=== PATIENT | female | born 1945 | race African-American/Black ===

== ENCOUNTER 2024-02-15 09:42 | Outpatient (CLI) | payer MEDICARE, SELFPAY ==
--- NOTE | ~2024-02-15 | CT_ITS ---
EXAMINATION: CT brain wo con DATE: 02/15/2024 10:35 INDICATION: Dementia. TECHNIQUE: Computed tomography (CT) of the head was performed without intravenous contrast. The mA wa s adjusted according to patient size. Iterative reconstruction technique was employed. The dose-lengt h product was 529.67 mGy-cm. COMPARISON: None FINDINGS: There are scattered areas of low attenuation in the cerebral white matter, which is within normal limits for the patient's age. There is no intracranial hemorrhage, acute infarction, or abnorm al intracranial mass lesion. The ventricles are normal in size. The paranasal sinuses are clear. Ther e is a trace left mastoid effusion. IMPRESSION: 1. Normal aging brain. Reviewed, dictated and finalized at location A. IMPRESSION: 1. Normal aging brain.
[2024-02-15 10:15] LABS: Basophils Percent Auto 0.4 % (0.2-1.2); Eosinophils Absolute Auto 0.1 K/mm3 (0-0.3); Eosinophils Percent Auto 1.6 % (0-4.4); Hematocrit 35.4 % (37.0-47.0); Immature Granulocyte Absolute 0.02 K/mm3 (0.00-0.031); Immature Granulocyte Percent A 0.3 % (0-0.5); Lymphocytes Absolute Auto 1.11 K/mm3 (0.9-3.2); Lymphocytes Percent Auto 15.2 % (18.3-44.2); Mean Corpuscular HGB Conc 33.9 g/dl (32-36); Mean Corpuscular Hemoglobin 28.1 pg (26-34); Mean Corpuscular Volume 82.9 fl (80-100); Mean Platelet Volume 10.4 fl (7.4-10.4); Monocytes Absolute Auto 0.3 K/mm3 (0.1-0.6); Monocytes Percent Auto 4.5 % (2.6-8.5); Neutrophils Absolute Auto 5.7 K/mm3 (1.3-6.7); Platelet Count Result 256 k/mm3 (150-375); Red Blood Count 4.27 M/mm3 (4.2-5.4); White Blood Count 7.3 K/mm3 (4.5-10.0)
[2024-02-15 10:26] LABS: Alanine Aminotransferase 29 U/L (6-35); Albumin Level 4.2 g/dL (3.5-5.1); Alkaline Phosphatase 79 U/L (38-126); Anion Gap 6 mmol/L (4-12); Aspartate Amino Transferase 42 U/L (14-36); Bilirubin,Total 0.6 mg/dL (0.2-1.3); Blood Urea Nitrogen 18 mg/dL (7-17); Calcium 10.1 mg/dL (8.4-10.2); Carbon Dioxide 26 mmol/L (22-30); Chloride 108 mmol/L (98-107); Cholesterol 237 mg/dL (0-200); Estimated Glomerular Filt Rate > 60; Glucose 96 mg/dL (65-110); HDL Direct 78 mg/dL; Potassium 4.1 mmol/L (3.4-5.0); Sodium 140 mmol/L (137-145); Triglycerides 72 mg/dL (<150)
[2024-02-15 10:36] LABS: LDL Cholesterol Direct 102 mg/dL
[2024-02-15 11:07] LABS: Add Urine Microscopic? YES; Appearance Urine Clear (Clear); Bacteria Urine None Seen /hpf; Bilirubin Urine Negative (Negative); Blood Urine Negative (Negative); Color Urine Yellow (Yellow); Glucose Urine UA Negative (Negative); Ketones Urine Negative (Negative); Leukocyte Esterase Ur Trace LEU/UL (Negative); Nitrate Urine Negative (Negative); Non Pathogenic Casts 0-2; Protein Urine Trace mg/dL (Negative); RBC Urine 0-2 /hpf (0-2); Squamous Epithelial Cell Urine None Seen /hpf (Few); Urobilinogen Urine 0.2 mg/dL (<2.0); WBC Urine 0-5 /hpf (0-3); pH Urine 6.5 (5.0-9.0)
[2024-02-15 11:08] LABS: Free T4 Free Thyroxine 0.97 ng/mL (0.78-2.19)
[2024-02-15 14:21] LABS: Rapid Plasma Reagin Non-Reactive (NonReactive)
== END 2024-02-15 09:43 | disposition home or self-care (01) ==
PROVIDERS: PCP Internal Medicine; Visit Provider Internal Medicine
DX: F03.90 Unspecified dementia, unspecified severity, without behavioral disturbance, psychotic disturbance, mood disturbance, and anxiety (principal); N39.0 Urinary tract infection, site not specified; I10 Essential (primary) hypertension; E78.00 Pure hypercholesterolemia, unspecified
CPT/HCPCS: 36415; 70450; 80053; 80061; 81001; 82607; 84439; 84443; 85025; 86592

== ENCOUNTER 2024-11-14 08:43 | Outpatient (CLI) | payer MEDICARE, SELFPAY ==
--- OUTSIDE RECORDS SUMMARY | 2024-11-14 08:51 | XMS_ITS | Clinical Summary ---
Author Organization [facility] Address [address] [place] [address] Care Team Providers Care Sample Stitcher Name Role Phone Matthew Lopez MD Primary Care Provider [phone] Source Comments [facility],non-owned Affiliates and Associated Physician Practices is amultiple site organization consisting of ambulatory clinics and hospital sitesin [place], [place], [place] and [place]. This disclosure is being madepursuant to the Care Everywhere program and may not contain all information available regarding this patient. 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 Gender Identity Not on file Sexual Orientation Not on file Plan of Treatment Health Maintenance Due Date Last Done Comments BONE DENSITY TESTING 1945 HEPATITIS C SCREENING 09/07/1964 DTAP/TDAP/TD VACCINES (1 - Tdap) 1965 PNEUMOCOCCAL VACCINE 50+ (1 of 1 - PCV) 1996 ZOSTER VACCINE (1 of 2) 1996 Respiratory Syncytial Virus (RSV) Vaccine Pt: or over 60 yrs (1 - 1-dose 75+ series) 2021 COVID-19 VACCINE ( - 2023-2 5 season) 2023 DEPRESSION SCREENING 04/24/2024 MEDICARE AWV CALENDAR YEAR 2024 INFLUENZA VACCINE (#1) 2024 HEPATITIS B VACCINE Aged Out No longe r eligible based on patient's age to complete this topic HIB VACCINE Aged Out No longer eligi ble based on patient's age to complete this topic HPV VACCINE Aged Out No longer eligi ble based on patient's age to complete this topic MENINGOCOCCAL (Group B) VACC INE SHARED DECISION-MAKING Aged Out No longer eligibl e based on patient's age to complete this topic MENINGOCOCCAL GROUPS A/C/Y/W VACCINE Aged Out No longer eligible b ased on patient's age to complete this topic Insurance [facility] MANAGED MEDICARE ADV Care Teams Sample Stitcher Relationship Specialty Start Date End Date Matthew Lopez MD [address] [place] [address] [address] [place] [address] PCP - General 07/29/22
--- OUTSIDE RECORDS SUMMARY | 2024-11-14 08:52 | XMS_ITS | Clinical Summary ---
Author Organization [facility] Address [address] [place] [id number] Care Team Providers Care Data Analytics Architect Name Role Phone Matthew Lopez MD Primary Care Provider [phone] Allergies No known active allergies Medications atorvastatin (LIPITOR) 20 MG tablet Take 1 tablet (20 mg total) by mouth daily. 05/23/2022 Active hydroCHLOROthiaz domingo (MICROZIDE) 12.5 MG tablet Take 1 tablet (12.5 mg total) by mouth daily. 05/16/2022 Active metoprolol succinate ER (TOPROL-XL) 50 MG 24 hr tablet Take 1 tablet (50 mg total) by mouth daily. 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 Gender Identity Not on file Sexual Orientation Not on file Last Filed Vital Signs Vital Sign Reading Time Taken Comments Blood Pressure 168/99 11/02/2022 3:24 PM CDT Pulse 90 11/02/2022 2:31 PM CDT Temperature 36.8 C (98.3 F) 11/02/2022 2:31 PM CDT Respiratory Rate - - Oxygen Saturation 100% 11/02/2022 2:31 PM CDT Inhaled Oxygen Concentration - - Weight 67.9 kg (149 lb 9.6 oz) 11/02/2022 2:31 P M CDT Height 142.2 cm (4' 8) 11/02/2022 2:31 PM CDT Body Mass Index 33.54 11/02/2022 2:31 PM CDT Plan of Treatment Health Maintenance Due Date Last Done Comments Hepatitis C 1963 DTaP, Tdap and Td Vaccines ( 1 - Tdap) 1965 Pneumococcal Vaccine: 50+ Years (1 of 1 - PCV) 1996 Zoster Vaccines (1 of 2) 1996 Annual Medicare Wellness Visit 09/13/2011 Dexa Scan (General) 09/13/2011 RSV Immunization or 60+ Years (1 - 1-dose 75+ series) 2021 COVID-19 Vaccine (3 - 2023-2 5 season) 2023 02/20/2021, 06/29/2020 PHQ-2 (Physician [place]) 04/24/2024 Meningococcal B Vaccine Aged Out No l onger eligible based on patient's age to complete this topic Meningococcal Vaccine Aged Out No caitie tray eligible based on patient's age to complete this topic RSV Immunizations Under 20 Months Aged Out No longer eligible b ased on patient's age [place] [address] Care Teams Data Analytics Architect Relationship Specialty Start Date End Date Matthew Lopez MD [address] [id number] PCP - General INTERNAL MEDICINE 03/04/22
--- OUTSIDE RECORDS SUMMARY | 2024-11-14 08:52 | XMS_ITS | Data Portability ---
Author Organization [place] - [facility] [employer], Main Office Address [address] [place] [address] Care Team Providers Care Field Nurse Name Role Phone JO LOPEZ Primary Care Provider [phone] Assessment No assessment recorded. Plan of Treatment Reminders Order Date Submit Date Provider Last Modified By Organization Details Last Modified Time Details Appointments None recorded. Lab CBC w/ auto diff 025 [facility] Outpatient Lab, [address] [place], [address], 5 04:19:12 CBC w/ auto diff 025 [facility] Lab, [address] [place], [address], 5 04:19:12 CMP, serum or plasma 025 [facility] Lab, [address] [place], [address], 5 04:19:12 lipid panel, serum 025 [facility] Out[facility] Lab, [address] [place], [address], 5 04:19:12 TSH, serum or plasma 025 025 [facility] Outpatient Lab, [address] [place], [address], 5 04:19:13 vitamin B12, serum [id number] [place] [address] Outpatient Lab, [address] [place], [address], 4 10:26:57 RPR (rapid plasma reagin), serum [email or web address] [facility] Outpatient Lab, [address] [place] [address], [address], 4 10:26:58 lipid panel, serum [facility] Lab, [address] [place] [address], [address], 4 12:30:21 CMP, serum or plasma [facility], [address] [place] [address], [address], 4 12:26:21 T4, free, serum [email or web address] [facility] Lab, [address] [place] [address], [address], 4 10:26:57 TSH, serum or plasma [id number] [place] [address] Lab, [address] [place] [address], [address], 4 10:26:57 CBC w/ auto diff [facility] Lab, [address] [place] [address], [address], 4 12:28:01 Referral None recorded. Procedures None recorded. Surgeries None recorded. Imaging None recorded. Medication Orders None recorded. Patient TargetsNo targets recorded. Patient Instructions Encounter Date Encounter Id Patient Instructions Last Modified By Organization Details Last Modified Time 02/08/2024 [id number] dementia rating scale-2* [email or web address] Not available 02/08/2024 15:32:10 alcohol misuse* [email or web address] Not available 02/08/2024 15:32:11 depression screening* Not available 02/08/2024 15:32:10 multi-dimensiona l health assessment questionnaire* [email or web address] Not available 02/08/2024 15:32:11 Personalized a [facility] Plan and Screening Recommendations Advance Directives - Do you have one? Yes Advance Directives - Do we have your advance directive on file in your health record? No, please bring in a copy at your earliest convenience Primary Prevention/Intervent ion (prevents or decreases the chance of common diseases from occurring) Smoking Risk: Non Smoker Alcohol Misuse Screening: Negative Weight: Appropriate Physical activity: Need more exercise/physical activity Nutrition: Average Fall Risk (screened today): Low Vaccines Pneumococcal: Influenza: Your next one in the fall of this year Chronic Disease Risks Stroke: Intermediate Risk Active diagnosis, Continue current treatment plan Heart Attack: Intermediate Risk Active diagnosis, Continue current treatment plan Clogging of the Arteries: Intermediate Risk Active diagnosis, Continue current treatment plan Diabetes: Low Risk I have no recommendations Secondary Prevention/Intervent ion (detects treatable diseases before they may cause symptoms, disability, or ) Breast Cancer Screening with mammogram: Recommended today Cervical/Uterine/Ova andressa Cancer Screening: No screening necessary Osteoporosis Screening: Recommended today Date Screening Last Performed: Colon Cancer Screening: Colonoscopy Recommended today, but you have declined Date Screening Last Performed: _2012____ Eye Disease Screening: Your next exam in: goes every 2 yrs Dementia Risk: Low I have no recommendations Depression Screening: Negative I have no recommendations [email or web address] Not available 02/08/2024 15:18:33 Medicare wellnes s evaluation risk assessment stable. Follow-up for hypertension, hyperlipidemia and cognitive dysfunction. Will check blood work consisting of CBC, CMP, lipid, thyroid, B12, RPR. Needs a CT scan of the brain and try to set up for neuropsychiatric evaluation. Additional Orders - Directives - Recommendations 1. CT scan of the brain without contrast. 2. Set up for neurology evaluation up in [facility] Portions of the record may have been created with voice recognition software. Occasional wrong-word or qluea-i-ychm substitutions may have occurred due to the inherent limitations of voice recognition software. Read the chart carefully and recognize, using context, where substitutions have occurred. [email or web address] Not available 02/08/2024 15:31:52 11/07/2024 [id number] Acute lower back strain, hypertension, hyperlipidemia, anxiety disorder. Will continue on current Rx will check blood work consisting of CBC, CMP, lipid, thyroid and vitamin-D level. Does need a mammogram, bone density scan and Cologuard test. Will give a trial of a Medrol Dosepak. Additional Orders - Directives - Recommendations 1. Mammogram screening 2. bone density scan 3. Cologuard Follow Up: 4 Months Approximate Date: 03/07/2025 Portions of record are template driven. When necessary additional context will be provided. Additionally some portions have been created with voice recognition software. Occasional wrong-word or qscgy-s-wbic substitutions may have occurred due to the inherent limitations of voice recognition software. Read the chart carefully and recognize, using context, where substitutions may have occurred. Created: Jo Lopez M.D. 11.07.2024 03:15 PM [email or web address] Not available 11/07/2024 16:15:13 Reason for Referral None Reported. Results Created Date Observation Date Name Description Value Unit Range Abnormal Flag Note LastModifiedBy Organization Detail LastModifiedTime 10/13/19 21 10/12/2020 TSH, serum or plasm a thyroid-stim ulating hormone 0.539 uIU/m L 0.465- 4.680 Not Available [facility] (Lab) [address] [place], [address], 10/12/2020 15:45:19 10/13/19 21 10/12/2020 T4, free, serum free T4 0.90 NG/dL 0.78-2 .19 Not Available [facility] (Lab) [address] [place], [address], 10/12/2020 15:28:09 10/13/19 21 10/12/2020 vitam in D3, 25-hy droxy , serum [id number] 48.9 NG/mL 30-100 Vitam in D Statu s: Defic ient: <20 ng/mL Insuf ficie nt: 20-29 ng/mL Suffi cient : 30-10 0 ng/mL Not Available [facility] (Lab) [address] [place], [address], 10/12/2020 15:26:54 10/13/19 21 10/12/2020 CBC w/ auto diff white blood cells 7.7 x10'3 /uL 4.2-10 .8 Not Available [facility] (Lab) [address] [place], [address], 10/12/2020 14:43:15 10/13/19 21 10/12/2020 CBC w/ auto diff red blood cells 4.45 x10'6 /uL 3.80-5 .20 Not Available [facility] (Lab) [address] [place], [address], 10/12/2020 14:43:15 10/13/19 21 10/12/2020 CBC w/ auto diff hemoglobin 12.4 g/dL 12.0-1 5.6 Not Available [facility] (Lab) [address] [place], [address], 10/12/2020 14:43:15 10/13/19 21 10/12/2020 CBC w/ auto diff hematocrit 37.9 % 35.7-4 5.7 Not Available [facility] (Lab) [address] [place], [address], 10/12/2020 14:43:15 10/13/19 21 10/12/2020 CBC w/ auto diff mean red cell volume 85.2 fL 82.0-9 9.0 Not Available [facility] (Lab) [address] [place], [address], 10/12/2020 14:43:15 10/13/19 21 10/12/2020 CBC w/ auto diff mean red cell hemoglobin 27.9 pg 27.0-3 3.0 Not Available [facility] (Lab) [address] [place], [address], 10/12/2020 14:43:15 10/13/19 21 10/12/2020 CBC w/ auto diff mean RBC HGB concentratio n 32.7 g/dL 31.0-3 6.0 Not Available [facility] (Lab) [address] [place], [address], 10/12/2020 14:43:15 10/13/19 21 10/12/2020 CBC w/ auto diff red cell distribution width 14.9 % 11.8-1 5.5 Not Available [facility] (Lab) [address] [place], [address], 10/12/2020 14:43:15 10/13/19 21 10/12/2020 CBC w/ auto diff platelets 294 x10'3 /uL 150-40 0 Not Available [facility] (Lab) [address] [place], [address], 10/12/2020 14:43:15 10/13/19 21 10/12/2020 CBC w/ auto diff mean platelet volume 11.6 fL 9.0-12 .4 Not Available [facility] (Lab) [address] [place], [address], 10/12/2020 14:43:15 10/13/19 21 10/12/2020 CBC w/ auto diff neutrophils 74.7 % 39.0-7 2.0 high Not Available [facility] (Lab) [address] [place], [address], 10/12/2020 14:43:15 10/13/19 21 10/12/2020 CBC w/ auto diff lymphocytes 17.2 % 16.0-4 7.0 Not Available [facility] (Lab) [address] [place], [address], 10/12/2020 14:43:15 10/13/19 21 10/12/2020 CBC w/ auto diff monocytes 5.5 % 5.0-12 .0 Not Available [facility] (Lab) [address] [place], [address], 10/12/2020 14:43:15 10/13/19 21 10/12/2020 CBC w/ auto diff eosinophils 1.3 % 1.0-7. 0 Not Available [facility] (Lab) [address] [place], [address], 10/12/2020 14:43:15 10/13/19 21 10/12/2020 CBC w/ auto diff basophils 0.3 % 0.0-2. 0 Not Available [facility] (Lab) [address] [place], [address], 10/12/2020 14:43:15 10/13/19 21 10/12/2020 CBC w/ auto diff immature granulocytes 1.0 % 0.00-0 .50 high Not Available [facility] (Lab) [address] [place], [address], 10/12/2020 14:43:15 10/13/19 21 10/12/2020 CBC w/ auto diff neutrophils, absolute count 5.72 x10'3 /uL 1.5-8. 0 Not Available [facility] (Lab) [address] [place], [address], 10/12/2020 14:43:15 10/13/19 21 10/12/2020 CBC w/ auto diff lymphocytes, absolute count 1.32 x10'3 /uL 1.07-3 .43 Not Available [facility] (Lab) [address] [place], [address], 10/12/2020 14:43:15 10/13/19 21 10/12/2020 CBC w/ auto diff monocytes, absolute count 0.42 x10'3 /uL 0.29-0 .99 Not Available [facility] (Lab) [address] [place], [address], 10/12/2020 14:43:15 10/13/19 21 10/12/2020 CBC w/ auto diff eosinophils, absolute count 0.10 x10'3 /uL 0.02-0 .53 Not Available [facility] (Lab) [address] [place], [address], 10/12/2020 14:43:15 10/13/19 21 10/12/2020 CBC w/ auto diff basophils, absolute count 0.02 x10'3 /uL 0.01-0 .08 Not Available [facility] (Lab) [address] [place], [address], 10/12/2020 14:43:15 10/13/19 21 10/12/2020 CBC w/ auto diff immature granulocytes ,absolute 0.08 x10'3 /uL 0.00-0 .05 high Not Available [facility] (Lab) [address] [place], [address], 10/12/2020 14:43:15 10/13/19 21 10/12/2020 CBC w/ auto diff nucleated red blood cells 0.0 % -0 Not Available [facility] (Lab) [address] [place], [address], 10/12/2020 14:43:15 10/13/19 21 10/12/2020 CBC w/ auto diff NRBC# 0.00 x10'3 /uL Not Available [facility] (Lab) [address] [place], [address], 10/12/2020 14:43:15 10/13/19 21 10/12/2020 lipid panel , serum LDL cholesterol, calculated 65 mg/dL 0-130 NIH JT NSUS REPOR T RECOM MENDA TIONS FOR LDL: ADULT CHILD LOW RISK <130 <110 (OPTI MAL LDL) <100 ----- BORDE RLINE : 130-1 59 ----- HIGH RISK: >160 >130 A TRIGL YCERI DE RESUL T >400 INVAL IDATE S THE CALCU LATIO N FOR LDL FRACT IONAT ION - THE LDL RESUL T WILL NOT BE REPOR IRIS. Not Available [facility] (Lab) [address] [place], [address], 10/12/2020 13:53:24 10/13/19 21 10/12/2020 lipid panel , serum cholesterol 162 mg/dL 140-19 9 NIH JT NSUS RECOM MENDA TION FOR KAROL STERO L: ADULT CHILD LOW RISK: <200 <170 BORDE RLINE : <200- 239 ----- HIGH RISK: >240 >200 Not Available [facility] (Lab) [address] [place], [address], 10/12/2020 13:53:24 10/13/19 21 10/12/2020 lipid panel , serum triglyceride s 89 mg/dL 0-150 NIH JT NSUS REPOR T RECOM MENDA TION FOR TRIGL YCERI MECCA: ADULT CHILD LOW RISK: <150 ----- BODER LINE: 150-1 99 ----- HIGH RISK: >200 ----- Not Available [facility] (Lab) [address] [place], [address], 10/12/2020 13:53:24 10/13/19 21 10/12/2020 lipid panel , serum HDL cholesterol 79 mg/dL 40- Not Available [facility] (Lab) [address] [place], [address], 10/12/2020 13:53:24 10/13/19 21 10/12/2020 CMP, serum or plasm a carbon dioxide 26 mmol/ L 22-30 Not Available [facility] (Lab) [address] [place], [address], 10/12/2020 13:53:22 10/13/19 21 10/12/2020 CMP, serum or plasm a sodium 141 mmol/ L 137-14 5 Not Available [facility] (Lab) [address] [place], [address], 10/12/2020 13:53:22 10/13/19 21 10/12/2020 CMP, serum or plasm a potassium 4.0 mmol/ L 3.5-5. 1 Not Available [facility] (Lab) [address] [place], [address], 10/12/2020 13:53:22 10/13/19 21 10/12/2020 CMP, serum or plasm a chloride 109 mmol/ L 98-107 high Not Available [facility] (Lab) [address] [place], [address], 10/12/2020 13:53:22 10/13/19 21 10/12/2020 CMP, serum or plasm a creatinine 0.81 mg/dL 0.66-1 .25 Not Available [facility] (Lab) [address] [place], [address], 10/12/2020 13:53:22 10/13/19 21 10/12/2020 CMP, serum or plasm a agap 10.0 mmol/ L 14-22 low Not Available [facility] (Lab) [address] [place], [address], 10/12/2020 13:53:22 10/13/19 21 10/12/2020 CMP, serum or plasm a glucose 107 mg/dL 70-99 high Not Available [facility] (Lab) [address] [place], [address], 10/12/2020 13:53:22 10/13/19 21 10/12/2020 CMP, serum or plasm a BUN 26 mg/dL 8-19 high Not Available [facility] (Lab) [address] [place], [address], 10/12/2020 13:53:22 10/13/19 21 10/12/2020 CMP, serum or plasm a GFR >60 Refer ence Range : [place] ge GFR Healt hy Adult : >60 mL/mi n/1.7 3 m2 Chron ic Kidne y Disea se: 15-60 mL/mi n/1.7 3 m2 Kidne y Failu re: <15/m L/min /1.73 m2 www.n iddk. nih.g ov MDRD study equat ion hasn' t been valid ated in child love <18 yrs of age, pregn ant women , the elder ly >85 yrs of age, or in some racia l or ethni c subgr oups, suc as Hispa nics. Outsi de the valid ated jolanta eters , estim ated GFR is less accur ate requi ring clini ben judgm ent on a case by case basis . Clini ben inter preta tion for other races and ages must be made by the clini reynaldo . Futhe rmore , any of th e limit ation s with the use of serum creat inine relat ed to nutri lencho l statu s o r medic ation usage hasn' t accou nted for the MDRD Study equat ion. For perso ns < 18 yrs of age, a pedia tric GFR calcu lator can be locat ed on the [facility] websi te: https ://moises lui.grace arana.o rg/pr ofess ional s/kdo qi/gf r_cal culat or Not Available [facility] (Lab) [address] [place], [address], 10/12/2020 13:53:22 10/13/19 21 10/12/2020 CMP, serum or plasm a alkaline phosphatase 72 U/L 38-126 Not Available [facility] (Lab) [address] [place], [address], 10/12/2020 13:53:22 10/13/1910/12/2020 CMP, serum or plasm a alanine aminotransfe rase 26 U/L 0-35 Not Available [facility] (Lab) [address] [place], [address], 10/12/2020 13:53:22 10/13/19 21 10/12/2020 CMP, serum or plasm a aspartate aminotransfe rase 36 U/L 15-37 Not Available [facility] (Lab) [address] [place], [address], 10/12/2020 13:53:22 10/13/19 21 10/12/2020 CMP, serum or plasm a bilirubin, total 0.60 mg/dL 0.20-1 .30 Not Available [facility] (Lab) [address] [place], [address], 10/12/2020 13:53:22 10/13/19 21 10/12/2020 CMP, serum or plasm a calcium 10.5 mg/dL 8.4-10 .2 high Not Available [facility] (Lab) [address] [place], [address], 10/12/2020 13:53:22 10/13/19 21 10/12/2020 CMP, serum or plasm a total protein 7.1 g/dL 6.3-8. 2 Not Available [facility] (Lab) [address] [place], [address], 10/12/2020 13:53:22 10/13/19 21 10/12/2020 CMP, serum or plasm a albumin 4.3 g/dL 3.0-4. 4 Not Available [facility] (Lab) [address] [place], [address], 10/12/2020 13:53:22 10/13/19 21 10/12/2020 CMP, serum or plasm a globulin 2.8 g/dL 2.6-4. 2 Not Available [facility] (Lab) [address] [place], [address], 10/12/2020 13:53:22 10/13/19 21 10/12/2020 CMP, serum or plasm a A/G ratio 1.5 ratio 1.0-2. 0 Not Available [facility] (Lab) [address] [place], [address], 10/12/2020 13:53:22 08/03/19 22 08/02/2021 TSH thyroid-stim ulating hormone 1.040 uIU/m L 0.465- 4.680 Not Available [facility] (Lab) [address] [place], [address], 08/02/2021 14:23:01 08/03/19 22 08/02/2021 T4 FREE free T4 0.93 NG/dL 0.78-2 .19 Not Available [facility] (Lab) [address] [place], [address], 08/02/2021 14:12:12 08/03/19 22 08/02/2021 VITAM IN D 25-HY DROXY [id number] 47.8 NG/mL 30-100 Vitam in D Statu s: Defic ient: <20 ng/mL Insuf ficie nt: 20-29 ng/mL Suffi cient : 30-10 0 ng/mL Not Available [facility] (Lab) [address] [place], [address], 08/02/2021 14:12:09 08/03/19 22 08/02/2021 LIPID PANEL LDL cholesterol, calculated 77 mg/dL 0-130 NIH JT NSUS REPOR T RECOM MENDA TIONS FOR LDL: ADULT CHILD LOW RISK <130 <110 (OPTI MAL LDL) <100 ----- BORDE RLINE : 130-1 59 ----- HIGH RISK: >160 >130 A TRIGL YCERI DE RESUL T >400 INVAL IDATE S THE CALCU LATIO N FOR LDL FRACT IONAT ION - THE LDL RESUL T WILL NOT BE REPOR IRIS. Not Available [facility] (Lab) [address] [place], [address], 08/02/2021 13:54:03 08/03/19 22 08/02/2021 LIPID PANEL cholesterol 180 mg/dL 140-19 9 NIH JT NSUS RECOM MENDA TION FOR KAROL STERO L: ADULT CHILD LOW RISK: <200 <170 BORDE RLINE : <200- 239 ----- HIGH RISK: >240 >200 Not Available [facility] (Lab) [address] [place], [address], 08/02/2021 13:54:03 08/03/19 22 08/02/2021 LIPID PANEL triglyceride s 71 mg/dL 0-150 NIH JT NSUS REPOR T RECOM MENDA TION FOR TRIGL YCERI MECCA: ADULT CHILD LOW RISK: <150 ----- BODER LINE: 150-1 99 ----- HIGH RISK: >200 ----- Not Available [facility] (Lab) [address] [place], [address], 08/02/2021 13:54:03 08/03/19 22 08/02/2021 LIPID PANEL HDL cholesterol 89 mg/dL 40- Not Available [facility] (Lab) [address] [place], [address], 08/02/2021 13:54:03 08/03/19 22 08/02/2021 COMPR EHENS MANJIT METAB OLIC PANEL sodium 140 mmol/ L 137-14 5 Not Available [facility] (Lab) [address] [place], [address], 08/02/2021 13:53:59 08/03/19 22 08/02/2021 COMPR EHENS MANJIT METAB OLIC PANEL potassium 3.9 mmol/ L 3.5-5. 1 Not Available [facility] (Lab) [address] [place], [address], 08/02/2021 13:53:59 08/03/19 22 08/02/2021 COMPR EHENS MANJIT METAB OLIC PANEL chloride 107 mmol/ L 98-107 Not Available [facility] (Lab) [address] [place], [address], 08/02/2021 13:53:59 08/03/19 22 08/02/2021 COMPR EHENS MANJIT METAB OLIC PANEL carbon dioxide 28 mmol/ L 22-30 Not Available [facility] (Lab) [address] [place], [address], 08/02/2021 13:53:59 08/03/19 22 08/02/2021 COMPR EHENS MANJIT METAB OLIC PANEL agap 8.9 mmol/ L 14-22 low Not Available [facility] (Lab) [address] [place], [address], 08/02/2021 13:53:59 08/03/19 22 08/02/2021 COMPR EHENS MANJIT METAB OLIC PANEL glucose 101 mg/dL 70-99 high Not Available [facility] (Lab) [address] [place], [address], 08/02/2021 13:53:59 08/03/19 22 08/02/2021 COMPR EHENS MANJIT METAB OLIC PANEL BUN 23 mg/dL 8-19 high Not Available [facility] (Lab) [address] [place], [address], 08/02/2021 13:53:59 08/03/19 22 08/02/2021 COMPR EHENS MANJIT METAB OLIC PANEL creatinine 0.89 mg/dL 0.66-1 .25 Not Available [facility] (Lab) [address] [place], [address], 08/02/2021 13:53:59 08/03/19 22 08/02/2021 COMPR EHENS MANJIT METAB OLIC PANEL GFR >60 Refer ence Range : [place] ge GFR Healt hy Adult : >60 mL/mi n/1.7 3 m2 Chron ic Kidne y Disea se: 15-60 mL/mi n/1.7 3 m2 Kidne y Failu re: <15/m L/min /1.73 m2 www.n iddk. nih.g ov The MDRD study equat ion has not been valid ated in child love <18 years of age; pregn ant women ; the elder ly >85 years of age; or in some racia l or ethni c subgr oups, such as Hispa nics. Outsi de the valid ated jolanta eters , estim ated GFR is less accur ate, requi ring clini ben judgm ent on a case- by-ca se basis . Clini ben inter preta tion for other races and ages must be made by the clini reynaldo. The MDRD study equat ion has not been valid ated for the evalu ation of serum creat inine relat ed to nutri lencho l statu s or medic ation usage . For perso ns <18 years of age, a pedia tric GFR calcu lator is avail able on the [facility] websi te: https ://moises arana.blanca brand/pr carolyness ional s/kdo qi/gf r_cal culat or Not Available [facility] (Lab) [address] [place], [address], 08/02/2021 13:53:59 08/03/19 22 08/02/2021 COMPR EHENS MANJIT METAB OLIC PANEL alkaline phosphatase 79 U/L 38-126 Not Available [facility] (Lab) [address] [place], [address], 08/02/2021 13:53:59 08/03/19 22 08/02/2021 COMPR EHENS MANJIT METAB OLIC PANEL alanine aminotransfe rase 30 U/L 0-35 Not Available [facility] (Lab) [address] [place], [address], 08/02/2021 13:53:59 08/03/19 22 08/02/2021 COMPR EHENS MANJIT METAB OLIC PANEL aspartate aminotransfe rase 41 U/L 15-37 high Not Available [facility] (Lab) [address] [place], [address], 08/02/2021 13:53:59 08/03/19 22 08/02/2021 COMPR EHENS MANJIT METAB OLIC PANEL bilirubin, total 0.70 mg/dL 0.20-1 .30 Not Available [facility] (Lab) [address] [place], [address], 08/02/2021 13:53:59 08/03/19 22 08/02/2021 COMPR EHENS MANJIT METAB OLIC PANEL calcium 10.1 mg/dL 8.4-10 .2 Not Available [facility] (Lab) [address] [place], [address], 08/02/2021 13:53:59 08/03/19 22 08/02/2021 COMPR EHENS MANJIT METAB OLIC PANEL total protein 7.1 g/dL 6.3-8. 2 Not Available [facility] (Lab) [address] [place], [address], 08/02/2021 13:53:59 08/03/19 22 08/02/2021 COMPR EHENS MANJIT METAB OLIC PANEL albumin 4.1 g/dL 3.0-4. 4 Not Available [facility] (Lab) [address] [place], [address], 08/02/2021 13:53:59 08/03/19 22 08/02/2021 COMPR EHENS MANJIT METAB OLIC PANEL globulin 3.0 g/dL 2.6-4. 2 Not Available [facility] (Lab) [address] [place], [address], 08/02/2021 13:53:59 08/03/19 22 08/02/2021 COMPR EHENS MANJIT METAB OLIC PANEL A/G ratio 1.4 ratio 1.0-2. 0 Not Available [facility] (Lab) [address] [place], [address], 08/02/2021 13:53:59 08/03/19 22 08/02/2021 CBC/C OMPLE TE BLD COUNT W/DIF F hematocrit 37.0 % 35.7-4 5.7 Not Available [facility] (Lab) [address] [place], [address], 08/02/2021 13:35:30 08/03/19 22 08/02/2021 CBC/C OMPLE TE BLD COUNT W/DIF F white blood cells 8.8 x10'3 /uL 4.2-10 .8 Not Available [facility] (Lab) [address] [place], [address], 08/02/2021 13:35:30 08/03/19 22 08/02/2021 CBC/C OMPLE TE BLD COUNT W/DIF F red blood cells 4.37 x10'6 /uL 3.80-5 .20 Not Available [facility] (Lab) [address] [place], [address], 08/02/2021 13:35:30 08/03/19 22 08/02/2021 CBC/C OMPLE TE BLD COUNT W/DIF F hemoglobin 12.2 g/dL 12.0-1 5.6 Not Available [facility] (Lab) [address] [place], [address], 08/02/2021 13:35:30 08/03/19 22 08/02/2021 CBC/C OMPLE TE BLD COUNT W/DIF F mean red cell volume 84.7 fL 82.0-9 9.0 Not Available [facility] (Lab) [address] [place], [address], 08/02/2021 13:35:30 08/03/19 22 08/02/2021 CBC/C OMPLE TE BLD COUNT W/DIF F mean red cell hemoglobin 27.9 pg 27.0-3 3.0 Not Available [facility] (Lab) [address] [place], [address], 08/02/2021 13:35:30 08/03/19 22 08/02/2021 CBC/C OMPLE TE BLD COUNT W/DIF F mean RBC HGB concentratio n 33.0 g/dL 31.0-3 6.0 Not Available [facility] (Lab) [address] [place], [address], 08/02/2021 13:35:30 08/03/19 22 08/02/2021 CBC/C OMPLE TE BLD COUNT W/DIF F red cell distribution width 14.6 % 11.8-1 5.5 Not Available [facility] (Lab) [address] [place], [address], 08/02/2021 13:35:30 08/03/19 22 08/02/2021 CBC/C OMPLE TE BLD COUNT W/DIF F platelets 278 x10'3 /uL 150-40 0 Not Available [facility] (Lab) [address] [place], [address], 08/02/2021 13:35:30 08/03/19 22 08/02/2021 CBC/C OMPLE TE BLD COUNT W/DIF F mean platelet volume 10.6 fL 9.0-12 .4 Not Available [facility] (Lab) [address] [place], [address], 08/02/2021 13:35:30 08/03/19 22 08/02/2021 CBC/C OMPLE TE BLD COUNT W/DIF F neutrophils 78.0 % 39.0-7 2.0 high Not Available [facility] (Lab) [address] [place], [address], 08/02/2021 13:35:30 08/03/19 22 08/02/2021 CBC/C OMPLE TE BLD COUNT W/DIF F lymphocytes 15.4 % 16.0-4 7.0 low Not Available [facility] (Lab) [address] [place], [address], 08/02/2021 13:35:30 08/03/19 22 08/02/2021 CBC/C OMPLE TE BLD COUNT W/DIF F monocytes 4.9 % 5.0-12 .0 low Not Available [facility] (Lab) [address] [place], [address], 08/02/2021 13:35:30 08/03/19 22 08/02/2021 CBC/C OMPLE TE BLD COUNT W/DIF F eosinophils 1.0 % 1.0-7. 0 Not Available [facility] (Lab) [address] [place], [address], 08/02/2021 13:35:30 08/03/19 22 08/02/2021 CBC/C OMPLE TE BLD COUNT W/DIF F basophils 0.5 % 0.0-2. 0 Not Available [facility] (Lab) [address] [place], [address], 08/02/2021 13:35:30 08/03/19 22 08/02/2021 CBC/C OMPLE TE BLD COUNT W/DIF F immature granulocytes 0.2 % 0.00-0 .50 Not Available [facility] (Lab) [address] [place], [address], 08/02/2021 13:35:30 08/03/19 22 08/02/2021 CBC/C OMPLE TE BLD COUNT W/DIF F neutrophils, absolute count 6.86 x10'3 /uL 1.5-8. 0 Not Available [facility] (Lab) [address] [place], [address], 08/02/2021 13:35:30 08/03/19 22 08/02/2021 CBC/C OMPLE TE BLD COUNT W/DIF F lymphocytes, absolute count 1.35 x10'3 /uL 1.07-3 .43 Not Available [facility] (Lab) [address] [place], [address], 08/02/2021 13:35:30 08/03/19 22 08/02/2021 CBC/C OMPLE TE BLD COUNT W/DIF F monocytes, absolute count 0.43 x10'3 /uL 0.29-0 .99 Not Available [facility] (Lab) [address] [place], [address], 08/02/2021 13:35:30 08/03/19 22 08/02/2021 CBC/C OMPLE TE BLD COUNT W/DIF F eosinophils, absolute count 0.09 x10'3 /uL 0.02-0 .53 Not Available [facility] (Lab) [address] [place], [address], 08/02/2021 13:35:30 08/03/19 22 08/02/2021 CBC/C OMPLE TE BLD COUNT W/DIF F basophils, absolute count 0.04 x10'3 /uL 0.01-0 .08 Not Available [facility] (Lab) [address] [place], [address], 08/02/2021 13:35:30 08/03/19 22 08/02/2021 CBC/C OMPLE TE BLD COUNT W/DIF F immature granulocytes ,absolute 0.02 x10'3 /uL 0.00-0 .05 Not Available [facility] (Lab) [address] [place], [address], 08/02/2021 13:35:30 08/03/19 22 08/02/2021 CBC/C OMPLE TE BLD COUNT W/DIF F nucleated red blood cells 0.0 % -0 Not Available [facility] (Lab) [address] [place], [address], 08/02/2021 13:35:30 08/03/19 22 08/02/2021 CBC/C OMPLE TE BLD COUNT W/DIF F NRBC# 0.00 x10'3 /uL Not Available [facility] (Lab) [address] [place], [address], 08/02/2021 13:35:30 03/07/20 22 03/10/2022 RPR SCREE N RPR non-re active nonrea ctive Not Available [facility] (Lab) [address] [place], [address], 03/10/2022 14:55:45 03/07/20 22 03/09/2022 CERUL OPLAS MIN ceruloplasmi n 21.2 mg/dL 19.0-3 9.0 Perfo rmed at: - [facility] n [address] [facility] [employer] [place] [address]15 Lab Direc tor: Chetan bob PhD, Phone : [phone] Not Available [facility] (Lab) [address] [place], [address], 03/09/2022 12:12:12 03/07/20 22 03/09/2022 LYME, TOTAL AB TEST/ REFLE X lyme total antibody negati ve negati ve Lyme antib odies not detec iris. Refle x testi ng is not indic ated. No labor atory evide nce of infec tion with B. burgd orfer i (Lyme disea se). Negat manjit resul ts may occur in patie nts recen tly infec iris (less than or equal to 14 days) with B. burgd orfer i. If recen t infec tion is suspe cted, repea t testi ng on a new sampl e colle cted in 7 to 14 days is recom margot d. Perfo rmed at: - [facility] n [address] [facility] [employer] [facility], [place] [address] Lab Direc tor: Chetan bob PhD, Phone : [phone] Not Available [facility] (Lab) [address] [place] [address], [address], 03/09/2022 11:12:06 03/07/20 22 03/07/2022 VITAM IN B12 (CRISTIANO MACIE ) vb12 786 pg/mL 239-93 1 Not Available [facility] (Lab) [address] [place], [address], 03/07/2022 19:49:20 03/07/20 22 03/07/2022 CBC/C OMPLE TE BLD COUNT W/DIF F hematocrit 36.3 % 35.7-4 5.7 Not Available [facility] (Lab) [address] [place], [address], 03/07/2022 19:48:24 03/07/20 22 03/07/2022 CBC/C OMPLE TE BLD COUNT W/DIF F white blood cells 6.6 x10'3 /uL 4.2-10 .8 Not Available [facility] (Lab) [address] [place], [address], 03/07/2022 19:48:24 03/07/20 22 03/07/2022 CBC/C OMPLE TE BLD COUNT W/DIF F red blood cells 4.32 x10'6 /uL 3.80-5 .20 Not Available [facility] (Lab) [address] [place], [address], 03/07/2022 19:48:24 03/07/20 22 03/07/2022 CBC/C OMPLE TE BLD COUNT W/DIF F hemoglobin 11.9 g/dL 12.0-1 5.6 low Not Available [facility] (Lab) [address] [place], [address], 03/07/2022 19:48:24 03/07/20 22 03/07/2022 CBC/C OMPLE TE BLD COUNT W/DIF F mean red cell volume 84.0 fL 82.0-9 9.0 Not Available [facility] (Lab) [address] [place], [address], 03/07/2022 19:48:24 03/07/20 22 03/07/2022 CBC/C OMPLE TE BLD COUNT W/DIF F mean red cell hemoglobin 27.5 pg 27.0-3 3.0 Not Available [facility] (Lab) [address] [place], [address], 03/07/2022 19:48:24 03/07/20 22 03/07/2022 CBC/C OMPLE TE BLD COUNT W/DIF F mean RBC HGB concentratio n 32.8 g/dL 31.0-3 6.0 Not Available [facility] (Lab) [address] [place], [address], 03/07/2022 19:48:24 03/07/20 22 03/07/2022 CBC/C OMPLE TE BLD COUNT W/DIF F red cell distribution width 15.2 % 11.8-1 5.5 Not Available [facility] (Lab) [address] [place], [address], 03/07/2022 19:48:24 03/07/20 22 03/07/2022 CBC/C OMPLE TE BLD COUNT W/DIF F platelets 292 x10'3 /uL 150-40 0 Not Available [facility] (Lab) [address] [place], [address], 03/07/2022 19:48:24 03/07/20 22 03/07/2022 CBC/C OMPLE TE BLD COUNT W/DIF F mean platelet volume 11.4 fL 9.0-12 .4 Not Available [facility] (Lab) [address] [place], [address], 03/07/2022 19:48:24 03/07/20 22 03/07/2022 CBC/C OMPLE TE BLD COUNT W/DIF F neutrophils 66.3 % 39.0-7 2.0 Not Available [facility] (Lab) [address] [place], [address], 03/07/2022 19:48:24 03/07/20 22 03/07/2022 CBC/C OMPLE TE BLD COUNT W/DIF F lymphocytes 25.4 % 16.0-4 7.0 Not Available [facility] (Lab) [address] [place], [address], 03/07/2022 19:48:24 03/07/20 22 03/07/2022 CBC/C OMPLE TE BLD COUNT W/DIF F monocytes 6.5 % 5.0-12 .0 Not Available [facility] (Lab) [address] [place], [address], 03/07/2022 19:48:24 03/07/20 22 03/07/2022 CBC/C OMPLE TE BLD COUNT W/DIF F eosinophils 1.1 % 1.0-7. 0 Not Available [facility] (Lab) [address] [place], [address], 03/07/2022 19:48:24 03/07/20 22 03/07/2022 CBC/C OMPLE TE BLD COUNT W/DIF F basophils 0.5 % 0.0-2. 0 Not Available [facility] (Lab) [address] [place], [address], 03/07/2022 19:48:24 03/07/20 22 03/07/2022 CBC/C OMPLE TE BLD COUNT W/DIF F monocytes, absolute count 0.43 x10'3 /uL 0.29-0 .99 Not Available [facility] (Lab) [address] [place], [address], 03/07/2022 19:48:24 03/07/20 22 03/07/2022 CBC/C OMPLE TE BLD COUNT W/DIF F immature granulocytes 0.2 % 0.00-0 .50 Not Available [facility] (Lab) [address] [place], [address], 03/07/2022 19:48:24 03/07/20 22 03/07/2022 CBC/C OMPLE TE BLD COUNT W/DIF F neutrophils, absolute count 4.36 x10'3 /uL 1.5-8. 0 Not Available [facility] (Lab) [address] [place], [address], 03/07/2022 19:48:24 03/07/20 22 03/07/2022 CBC/C OMPLE TE BLD COUNT W/DIF F lymphocytes, absolute count 1.67 x10'3 /uL 1.07-3 .43 Not Available [facility] (Lab) [address] [place], [address], 03/07/2022 19:48:24 03/07/20 22 03/07/2022 CBC/C OMPLE TE BLD COUNT W/DIF F eosinophils, absolute count 0.07 x10'3 /uL 0.02-0 .53 Not Available [facility] (Lab) [address] [place], [address], 03/07/2022 19:48:24 03/07/20 22 03/07/2022 CBC/C OMPLE TE BLD COUNT W/DIF F basophils, absolute count 0.03 x10'3 /uL 0.01-0 .08 Not Available [facility] (Lab) [address] [place], [address], 03/07/2022 19:48:24 03/07/20 22 03/07/2022 CBC/C OMPLE TE BLD COUNT W/DIF F immature granulocytes ,absolute 0.01 x10'3 /uL 0.00-0 .05 Not Available [facility] (Lab) [address] [place], [address], 03/07/2022 19:48:24 03/07/20 22 03/07/2022 CBC/C OMPLE TE BLD COUNT W/DIF F nucleated red blood cells 0.0 % -0 Not Available [facility] (Lab) [address] [place], [address], 03/07/2022 19:48:24 03/07/20 22 03/07/2022 CBC/C OMPLE TE BLD COUNT W/DIF F NRBC# 0.00 x10'3 /uL Not Available [facility] (Lab) [address] [place], [address], 03/07/2022 19:48:24 03/07/20 22 03/07/2022 TSH thyroid-stim ulating hormone 0.068 uIU/m L 0.465- 4.680 low Not Available [facility] (Lab) [address] [place], [address], 03/07/2022 19:36:15 03/07/20 22 03/07/2022 T4 FREE free T4 0.91 NG/dL 0.78-2 .19 Not Available [facility] (Lab) [address] [place], [address], 03/07/2022 19:31:26 08/03/19 22 MAMMO , scree jennifer, digit al, bilat eral [facility] [address] [place] [address] Stevo jacobs Name: SARAH GARCIA [facility] ion #: [id number] Sex: F : 1945 1 Locati on: MO2 Attend ing Physic johnathan: MARK LOPEZ CE Orderi ng Physic johnathan: MARK LOPEZ Exam Date: 022 8:49 AM Exam Name: MG DIGITA Ulisses ALLEN BILAT SCREEN Admitt ing Diagno sis(es ): RADIOL OGY REPORT - FINAL EXAM: MG DIGITA L ALLEN BILAT SCREEN HISTOR Y: Screen ing mammog shawna 75-yea r-old female with no curren t breast compla ints. The patien t has a family histor y of breast cancer in a sister at age 4545 years old. COMPAR HILARIO: 2019, 2013 TECHNI QUE: Bilate ral CC and MLO views of the breast s were perfor med. Digita l Mammog monserrat images were obtain ed. CAD (compu ter assist ed detect ion) was utiliz ed. FINDIN GS: The breast s are hetero geneou sly dense, which may obscur e small masses . Page 1 of 2 [facility] Stevo jacobs Name: SARAH GARCIA Access ion #: [id number] Sex: F : 1945 1 Exam Date: 8:49 AM Exam Name: MG DIGITA L ALLEN BILAT SCREEN Admitt ing Diagno sis(es ): No new masses , develo ping asymme tries, suspic ious calcif icatio ns, or viola ectura l distor tion are seen. IMPRES CONNER: BIRADS 1: Assess ment comple te. Negati ve. Recomm end annual screen ing mammog monserrat. Accord ing to the [employer], yearly mammog shubham are recomm ended starti ng at age 40 and contin uing as long as the woman is in good health . Clinic al Breast Exam should be part of the period ic health exam-a bout every 3 years for women in their 20s and 30s and every year for women 40 and over. Breast self-e xam is an option for women in their 20s. Any breast change noted on the breast self-e xam she would be report ed prompt ly [facility]. A negati ve mammog monserrat report should not discou rage follow -up or biopsy of a clinic ally signif icant findin g and/or abnorm ality. Dense breast tissue may obscur e small neopla sms. This stevo jacobs has been entere d into a mammog monserrat remind er system with a target date for her next mammog shawna. Create d and electr onical ly signed by: Iftikhar quintero MD Signed Date: 9:29 AM (CT) Dictat ed by: Iftikhar quintero MD DD: 9:29 AM (CT) DT: 9:29 AM (CT) Page 2 of 2 [id number] [facility] (Imaging) [address] [place], [address], 06/22/2022 07:37:22 01/27/20 DEXA, axial skele ton [facility] [address] [facility] [address], [place] [address] Patirock t Name: SARAH GARCIA Access ion #: [id number] Sex: F : 1945 6 Locati on: RA2 Attend ing Physic johnathan: MARK LOPEZ CE Orderi Physic johnathan: MARK LOPEZ CE Exam Date: 12:42 PM Exam Name: XR DEXA AXIAL/ HIP/PE LVIS/S PINE Admitt ing Diagno sis(es ): RADIOL OGY REPORT - FINAL EXAM: XR DEXA AXIAL/ HIP/PE LVIS/S PINE HISTOR Y: senile osteop orosis COMPAR HILARIO: 2019, 2009 TECHNI QUE: TECHNI QUE: Dual energy x-ray of absorp tion examin ation of the bilate ral hips and lumbar spine in AP projec tion was perfor med. FINDIN GS: Lumbar Spine (L1-L4 ): The mean bone minera l densit y is 1.087 g/cm2 hydrox yapati te, correl ating with a T-scor e of -0.9 repres enting 3.9% decrea se from the 2019 study. Bilate ral hips: The mean bone minera l densit y is 0.911 g/cm2 calciu m Page 1 of 2 [facility] Stevo t Name: SARAH GARCIA Access ion #: [id number] Sex: F : 1945 6 Exam Date: 12:42 PM Exam Name: XR DEXA AXIAL/ HIP/PE LVIS/S PINE Admitt ing Diagno sis(es ): hydrox yapati te, correl ating with a T-scor e of -0.8 repres enting 1.6% decrea se from 2020. IMPRES CONNER: 1. The patien t's lumbar spine T-scor e is consis tent with a normal bone densit y. 2. The patien t's bilate ral hip T-scor e is consis tent with a normal bone densit y. Accord ing to the World Health Organi zation , T-scor e values greate r than -1.0 are normal , values betwee n -1.0 and -2.5 are catego rized as osteop enia, T-scor e of -2.5 or more are catego rized as osteop orosis . Create d and electr onical ly signed by: Cipriano steinberg MD Signed Date: 4:13 PM (CT) Dictat ed by: Cipriano steinberg MD DD: 4:13 PM (CT) DT: 4:13 PM (CT) Page 2 of 2 [id number] [facility] (Imaging) [address] [place], [address], 06/22/2022 07:37:22 03/07/20 CT, head, w/o contr ast [facility] [address] [place] [address] [phone] Pat[place] t Name: SARAH GARCIA Access ion #: [id number] Sex: F : 1945 4 Locati on: MO2 Attend ing Physic johnathan: MARK LOPEZ CE Orderi ng Physic johnathan: MARK LOPEZ CE Exam Date: 2021 10:43 AM Exam Name: CT HEAD WO Admitt ing Diagno sis(es ): RADIOL OGY REPORT - FINAL EXAM: CT HEAD WO HISTOR Y: Memory impair ment COMPAR HILARIO: None TECHNI QUE: Noncon trast axial CT images of the head were perfor med. Sagitt al and potts l reform atted images were obtain ed. This CT exam was perfor med using 1 or more of the follow ing dose reduct ion techni ques: Automa iris exposu re contro l, adjust ment of the mA and/or kv accord ing to patien t size, or the use of iterat manjit recons tructi on techni ques. Page 1 of 3 [facility] Patirock t Name: SARAH GARCIA Access ion #: [id number] Sex: F : 1945 4 Exam Date: 2021 10:43 AM Exam Name: CT HEAD WO Admitt ing Diagno sis(es ): FINDIN GS: Brain: The sams-w maude matter differ entiat ion demons trates modera te leukom alacia change compat ible with chroni c white matter , athero sclero sis and small lacuna r infarc tion. Mild symmet sherron cortic al atroph ic change s noted. There is not eviden ce of edema, mass effect , or hernia tion. There is not eviden ce of hemorr liliam within the intra or extra axial space. Ventri cles: The ventri cular system is midlin e, mild centra l atroph ic change s noted. Bones: Unrema rkable . Sinuse s: Aerate d Mastoi d air cells: Aerate d If sympto ms persis t, MRI examin ation could be consid ered if the patien t is MRI compat ible. IMPRES CONNER: No CT eviden ce of an acute intrac ranial proces s. Create d and electr onical ly signed by: Cipriano steinberg MD Signed Date: 2021 2:39 PM (CT) Page 2 [facility] 3 [facility] Access ion #: [id number] Sex: F : 1945 4 Exam Date: 2021 10:43 AM Exam Name: CT HEAD WO Admitt ing Diagno sis(es ): Dictat ed by: Cipriano steinberg MD DD: 2021 2:39 PM (CT) DT: 2021 2:39 PM (CT) Page 3 of 3 [id number] [facility] (Imaging) [address] [place], [address], 06/22/2022 07:37:22 10/21/19 23 10/20/2022 elect solange leel ogram (EEG) ; inclu ding recor ding awake and aslee p (PROC ) No observ ation record ed. [place] [id number] [facility] [address] [facility] [address], [place], [address], 10/20/2022 16:27:50 10/22/19 23 10/20/2022 MRI, brain , w/wo contr ast No observ ation record ed. [address] [facility], [place], [address], 10/22/2022 08:33:28 02/15/20 24 02/15/2024 CT, head, w/o contr ast No observ ation record ed. [address], [place], [address], 02/15/2024 12:59:39 Result Notes Documentation Provider Name and Address Organization Details Recorded Time Mammo, Screening, Digital, Bilateral : [facility] [address] [place] [address] Patient Name: SARAH GARCIA Sex: F : 1945 [place] [facility] [place] Physician: JO LOPEZ Ordering Physician: JO LOPEZ Exam Date: 08/02/2021 8:49 AM Exam Name: MG DIGITAL ALLEN BILAT SCREEN Admitting Diagnosis(es): RADIOLOGY REPORT - FINAL EXAM: MG DIGITAL ALLEN BILAT SCREEN HISTORY: Screening mammogram 75-year-old female with no current breast complaints. The patient has a family history of breast cancer in a sister at age 4545 years old. COMPARISON: 09/25/2019, 06/28/2013 TECHNIQUE: Bilateral CC and MLO views of the breasts were performed. Digital Mammography images were obtained. CAD (computer assisted detection) was utilized. FINDINGS: The breasts are heterogeneously dense, which may obscure small masses. Page 1 of 2 [facility] Patient Name: SARAH GARCIA Sex: F : 1945 Exam Date: 08/02/2021 8:49 AM Exam Name: DIGITAL ALLEN BILAT SCREEN Admitting Diagnosis(es): No new masses, developing asymmetries, suspicious calcifications, or architectural distortion are seen. IMPRESSION: BIRADS 1: Assessment complete. Negative. Recommend annual screening mammography. According to the [employer], yearly mammograms are recommended starting at age 40 and continuing as long as the woman is in good health. Clinical Breast Exam should be part of the periodic health exam-about every 3 years for women in their 20s and 30s and every year for women 40 and over. Breast self-exam is an option for women in their 20s. Any breast change noted on the breast self-exam she would be reported promptly to the patient's health care provider. A negative mammography report should not discourage follow-up or biopsy of a clinically significant finding and/or abnormality. Dense breast tissue may obscure small neoplasms. This patient has been entered into a mammography reminder system with a target date for her next mammogram. Created and electronically signed by: Iftikhar Vera MD Signed Date: 08/02/2021 9:29 AM (CT) Dictated by: Iftikhar Vera MD (CT) (CT) Page 2 of 2 Not Available [facility] 06/22/2022 07:37:23 Dexa, Axial Skeleton : [address] [address] Patient Name: SARAH GARCIA Sex: F : 1945 Location: [facility] Attending Physician: JO LOPEZ Ordering Physician: JO LOPEZ Exam Date: 01/26/2022 12:42 PM Exam Name: XR DEXA AXIAL/HIP/PELVIS/SPINE Admitting Diagnosis(es): RADIOLOGY REPORT - FINAL EXAM: XR DEXA AXIAL/HIP/PELVIS/SPINE HISTORY: senile osteoporosis COMPARISON: 09/25/2019, 03/05/2010 TECHNIQUE: TECHNIQUE: Dual energy x-ray of absorption examination of the bilateral hips and lumbar spine in AP projection was performed. FINDINGS: Lumbar Spine (L1-L4): The mean bone mineral density is 1.087 g/cm2 hydroxyapatite, correlating with a T-score of -0.9 representing 3.9% decrease from the 2020 study. Bilateral hips: The mean bone mineral density is 0.911 g/cm2 calcium Page 1 of 2 [facility] Patient Name: SARAH GARCIA Sex: F : 1945 Exam Date: 01/26/2022 12:42 PM Exam Name: XR DEXA AXIAL/HIP/PELVIS/SPINE Admitting Diagnosis(es): hydroxyapatite, correlating with a T-score of -0.8 representing 1.6% decrease from 2020. IMPRESSION: 1. The patient's lumbar spine T-score is consistent with a normal bone density. 2. The patient's bilateral hip T-score is consistent with a normal bone density. According to the World Health Organization, T-score values greater than -1.0 are normal, values between -1.0 and -2.5 are categorized as osteopenia, T-score of -2.5 or more are categorized as osteoporosis. Created and electronically signed by: Cipriano Noriega MD Signed Date: 01/26/2022 4:13 PM (CT) Dictated by: Cipriano Noriega MD (CT) (CT) Page 2 of 2 Not Available [facility] 06/22/2022 07:37:23 Ct, Head, W/o Contrast : [address] [address] Patient Name: SARAH GARCIA Sex: F : 1945 [place] [facility] [place] Physician: JO LOPEZ Ordering Physician: JO LOPEZ Exam Date: 03/07/2022 10:43 AM Exam Name: CT HEAD WO Admitting Diagnosis(es): RADIOLOGY REPORT - FINAL EXAM: CT HEAD WO HISTORY: Memory impairment COMPARISON: None TECHNIQUE: Noncontrast axial CT images of the head were performed. Sagittal and coronal reformatted images were obtained. This CT exam was performed using 1 or more of the following dose reduction techniques: Automated exposure control, adjustment of the mA and/or kv according to patient size, or the use of iterative reconstruction techniques. Page 1 of 3 [facility] Patient Name: SARAH GARCIA Sex: F : 1945 Exam Date: 03/07/2022 10:43 AM Exam Name: CT HEAD WO Admitting Diagnosis(es): FINDINGS: Brain: The sams-white matter differentiation demonstrates moderate leukomalacia change compatible with chronic white matter, atherosclerosis and small lacunar infarction. Mild symmetric cortical atrophic changes noted. There is not evidence of edema, mass effect, or herniation. There is not evidence of hemorrhage within the intra or extra axial space. Ventricles: The ventricular system is midline, mild central atrophic changes noted. Bones: Unremarkable. Sinuses: Aerated Mastoid air cells: Aerated If symptoms persist, MRI examination could be considered if the patient is MRI compatible. IMPRESSION: No CT evidence of an acute intracranial process. Created and electronically signed by: Cipriano Noriega MD Signed Date: 03/07/2022 2:39 PM (CT) Page 2 of 3 [facility] Patient Name: SARAH GARCIA Sex: F : 1945 Exam Date: 03/07/2022 10:43 AM Exam Name: CT HEAD WO Admitting Diagnosis(es): Dictated by: Cipriano Noriega MD (CT) (CT) Page 3 of 3 Not Available [facility] 06/22/2022 07:37:23 Problems Name Problem SNOMED Code Status Onset Date Resolution Date Notes Provider Name and Address Organization Details Recorded Time Mitral valve disorder 33882183 Active Not Available [facility] 3 07:31:53 Hypercholeste rolemia 02956687 Active Not Available [facility] 3 07:31:54 Anxiety disorder 244029707 Active Not Available [facility] 3 07:31:54 Peripheral venous insufficiency 92854318 Active Not Available [facility] 3 07:31:54 Postartificia l menopausal syndrome 43489110 Active Not Available [facility] 3 07:31:54 Vitamin D deficiency 18524948 Active Jo Lopez MD [address], [place], [address] , [facility] [employer] [facility] [employer] [facility] 5 16:13:50 Essential hypertension 93070835 Active Not Available [facility] 3 07:31:54 Varicose veins of lower extremity 97477083 Active Not Available [facility] 3 07:31:54 Palpitations 50134783 Active Not Available [facility] 3 07:31:55 Paresthesia 51386011 Active Not Available [facility] 3 07:31:55 Osteoarthriti s of knee 625106358 Active 2017 Not Available [facility] 3 07:31:54 Senile osteoporosis 67839651 Active 2021 Anabel zuleta [place] [employer] [facility] [employer] [facility] 5 16:20:50 Dementia 28880931 Active 2021 Not Available [facility] 3 07:31:54 Acute urinary tract infection 196251454 Active 2023 Anabel zuleta, [employer] [facility] [employer] [facility] 4 15:38:45 Low back strain 674376567 Active 2024 Jo Lopez MD [address], [address], [place], [address] , [employer] [facility] [employer] [facility] 5 16:06:56 Acute low back pain 835726868 Active 2024 Jo Lopez MD [address], [address], [place], [address] , [employer] [facility] [employer] [facility] 5 16:15:58 Problem Notes None recorded. Procedures Surgical History Date Name Laterality Status Provider Name and Address Organization Details Recorded Time 02/08/20 Medicare Wellness CPT Code, subsequent completed Sindi Clayton RN [place] - [facility] [employer] [facility] 02/08/2024 15:12:00 09/25/19 20 Most Recent Bone Density completed Not Available [facility] 06[facility]22 07:27:28 11/09/19 13 Date of Last Colonoscopy completed Not Available [facility] 06[facility]22 07:27:27 Imaging Results None recorded. Procedure Notes None recorded. Medical Equipment None Reported. Allergies Allergen ID Allergen Name Allergen Category Reaction Reaction Severity Criticality Documentation Date Start Date Code Code System Note Provider Name and Address Organization Details Recorded Time 31391 Accupril medicatio n cough Not available Not available 06/22/2022 99392 RxNorm Not Available [facility] 3 07:37:14 03274 aspirin medicatio n other Not available Not available 06/22/2022 1191 RxNorm bleed ing gums Not Available [facility] 3 07:37:14 Medications Name Sig Start Date Stop Date Status Note LastModified by Organization Details LastModified Time atorvastati n 20 mg tablet TAKE 1 TABLET BY MOUTH AT BEDTIME 11/07 completed Not Available Not Available Not Available metoprolol succinate ER 50 mg tablet,exte nded release 24 hr take one tablet daily 11/07 completed Not Available Not Available Not Available cyanocobala min (vit B-12) 1,000 mcg tablet Take 1 tablet every day by oral route. 05/24 completed Not Available Not Available Not Available Tylenol Arthritis Pain 650 mg tablet,exte nded release Take 2 tablets every 8 hours by oral route. 2015 active Not Available Not Available Not Avai lable aspirin 81 mg tablet,johnathan yed release Take 1 tablet every day by oral route. 05/24 completed Not Available Not Available Not Available Vitamin C 1,000 mg tablet Take 1 tablet every day by oral route. 05/24 completed Not Available Not Available Not Available garlic 1 mg capsule Take 1 capsule every day by oral route. 2015 active Not Available Not Available Not Avai lable hydrochloro thiazide 12.5 mg capsule TAKE 1 CAPSULE BY MOUTH DAILY 04/15 completed Not Available Not Available Not Available methylpredn isolone 4 mg tablets in a dose pack As Directed 2024 active Not Available Not Available Not Avai lable echinacea 125 mg tablet Take 1 tablet every day by oral route. 05/24 completed Not Available Not Available Not Available atenolol 50 mg tablet TAKE 1 TABLET BY MOUTH ONCE DAILY 10/28 completed Not Available Not Available Not Available Bactrim DS 800 mg-160 mg tablet Take 1 tablet every 12 hours by oral route. 04/10 completed Not Available Not Available Not Available vitamin A 1,250 unit-ergoca lciferol (vitamin D2) 135 unit capsule Take 1 capsule every day by oral route. 2015 active Not Available Not Available Not Avai lable Vitamin D3 25 mcg (1,000 unit) capsule Take 1 capsule every day by oral route. 2015 active Not Available Not Available Not Avai lable horse chestnut 300 mg capsule Take 1 capsule every day by oral route. 05/24 completed Not Available Not Available Not Available cranberry 450 mg tablet Take 1 tablet every day by oral route. 2015 active Not Available Not Available Not Avai lable vitamin E daily 2015 active Not Available Not Available Not Avai lable Super B-50 Complex once daily 2019 active Not Available Not Available Not Avai lable hydrochloro thiazide 12.5 mg tablet TAKE 1 TABLET BY MOUTH DAILY 11/07 completed Not Available Not Available Not Available Fish Oil 100 mg-160 mg-1,000 mg capsule Take 1 capsule every day by oral route. 2015 active Not Available Not Available Not Avai lable metoprolol succ 50 mg-hydrochl orothiazide 12.5 mg tablet,ext. rel 24 hr Take 1 tablet every day by oral route. 04/07 completed Not Available Not Available Not Available Garcinia Cambogia 200 mcg-500 mg tablet Take 1 tablet every day by oral route. 2015 active Not Available Not Available Not Avai lable Calcium Magnesium DAILY 05/24 completed Not Available Not Available Not Available biotin 1 mg capsule Take 1 capsule every day by oral route. 2016 active Not Available Not Available Not Avai lable Os-Ben + D3 daily 2016 active Not Available Not Available Not Avai lable Azo Bladder Control daily 2015 active Not Available Not Available Not Avai lable glucosamine 125 mg-chondroi tn 100 mg-cartilg 40 mg-colagn 10 mg tablet Take 1 tablet every day by oral route. 05/24 completed Not Available Not Available Not Available Vitals Date Recorded Body mass index (BMI) Body height Oxygen saturation Oxygen saturation in Arterial blood by Pulse oximetry Heart rate Body temperature Body weight Systolic And Diastolic Systolic And Diastolic Provider Name and Address Organization Details Last Updated DateTime 2 29.9 kg/m2 147.32 cm 98 % 98 % 58 /min 97.4 [degF] 50124.7 1 g 162/90 mm[Hg] 142/82 mm[Hg] Not Available [facility] 3 07:28:56 Date Recorded Body mass index (BMI) Body height Oxygen saturation Oxygen saturation in Arterial blood by Pulse oximetry Pain severity - 0-10 verbal numeric rating [Score] - Reported Heart rate Respiratory rate Body weight Systolic And Diastolic Provider Name and Address Organization Details Last Updated DateTime 1 30.1 kg/m2 147.32 cm 98 % 98 % 0 90 /min 12 /min 84318.3 g 142/80 mm[Hg] Not Available [facility] 3 07:28:56 Date Recorded Body height Body mass index (BMI) Body weight Heart rate Body temperature Oxygen saturation Oxygen saturation in Arterial blood by Pulse oximetry Systolic And Diastolic Provider Name and Address Organization Details Last Updated DateTime 5 152.4 cm 24.8 kg/m2 41404.2 3 g 92 /min 97 [degF] 94 % 94 % 120/84 mm[Hg] Ani [facility] 5 15:48:54 Date Recorded Body mass index (BMI) Body height Oxygen saturation Oxygen saturation in Arterial blood by Pulse oximetry Pain severity - 0-10 verbal numeric rating [Score] - Reported Heart rate Body temperature Body weight Systolic And Diastolic Provider Name and Address Organization Details Last Updated DateTime 2 30.5 kg/m2 147.32 cm 99 % 99 % 0 82 /min 96.2 [degF] 63347.4 9 g 122/70 mm[Hg] Not Available [facility] 3 07:28:56 Date Recorded Body height Body mass index (BMI) Body weight Heart rate Body temperature Oxygen saturation Oxygen saturation in Arterial blood by Pulse oximetry Systolic And Diastolic Provider Name and Address Organization Details Last Updated DateTime 4 152.4 cm 25.2 kg/m2 14738.4 2 g 99 /min 97.9 [degF] 98 % 98 % 140/90 mm[Hg] TRISTA Mcknight [place] [facility] 4 15:05:04 Social History Question Answer Notes LastModified by Organizat ion Details LastModified Time Tobacco Smoking Status Never Smoker Not Available [facility] 06/22/2022 07:26:56 Do You Have An Advance Directive? Yes [id number] Information not available 06/22/2022 Are You Blind Or Do You Have Difficulty Seeing? No MIGRATION.[id number] 5731 Information not available 06/22/2022 Are You Deaf Or Do You Have Serious Difficulty Hearing? No MIGRATION.[id number] 7623 Information not available 06/22/2022 What Type Of Diet Are You Following? REGULAR MIGRATION.625791 0982 Information not available 06/22/2022 Have There Been Any Changes To Your Family Or Social Situation? No MIGRATION.010438 9870 Information not available 06/22/2022 What Is The Fluoride Status Of Your Home? Unknown MIGRATION.263225 0260 Information not available 06/22/2022 Are There Any Guns Present In Your Home? No MIGRATION.368906 0448 Information not available 06/22/2022 Do You Use Insect Repellent Routinely? No MIGRATION.367733 7227 Information not available 06/22/2022 Where Do You Live? [facility] MIGRATION.209342 2254 Information not available 06/22/2022 Guns Present In The Home? No [email or web address] Information not available 02/08/2024 Are You Able To Care For Yourself? Yes [email or web address] Information not available 02/08/2024 Are You Blind Or Do Yo Have Difficulty Seeing? No [email or web address] Information not available 02/08/2024 Are You Deaf Or Do You Have Serious Difficulty Hearing? No Information not available 02/08/2024 Live Alone Of With Others? Alone [email or web address] Information not available 02/08/2024 Do You Have A Medical Power Of Home Health Care Social Worker? Yes MIGRATION.[id number] 3890 Information not available 06/22/2022 What Was The Date Of Your Most Recent Tobacco Screening? 02/08/2024 [email or web address] Information not available 02/08/2024 Do You Have Any Pets? No MIGRATION.123527 2451 Information not available 06/22/2022 Do You Use Your Seat Belt Or Car Seat Routinely? Yes [email or web address] Information not available 02/08/2024 Do You Have Smoke And Carbon Monoxide Detectors In Your Home? Yes MIGRATION.069005 7737 Information not available 06/22/2022 Are You Passively Exposed To Smoke? No MIGRATION.224950 4244 Information not available 06/22/2022 Are There Any Smokers In Your House? No MIGRATION.217241 8002 Information not available 06/22/2022 Do You Use Sunscreen Routinely? No MIGRATION.938117 1038 Information not available 06/22/2022 Have You Recently Traveled Abroad? No MIGRATION.802287 7639 Information not available 06/22/2022 Do You Have Difficulty Walking Or Climbing Stairs? No MIGRATION.075449 1766 Information not available 06/22/2022 Do You Have Any Dietary Restrictions? No MIGRATION.688859 9912 Information not available 06/22/2022 Sex: Unknown Functional Status Question Answer Note LastModified by Organizat ion Details LastModified Time What is your level of alcohol consumption? None MIGRATION.174441 6974 Information not available 06/22/2022 Do you or have you ever used smokeless tobacco? Never used smokeless tobacco MIGRATION.038982 9822 Information not available 06/22/2022 Do you have transportation difficulties? No MIGRATION.380580 6377 Information not available 06/22/2022 Are you able to walk? YESWOREST MIGRATION.087293 2594 Information not available 06/22/2022 Do you have difficulty doing errands alone? No MIGRATION.231667 6328 Information not available 06/22/2022 Are you able to care for yourself? Yes MIGRATION.020834 5929 Information not available 06/22/2022 What is your occupation? retired MIGRATION.087248 0915 Information not available 06/22/2022 Do you have difficulty dressing or bathing? No MIGRATION.520494 4701 Information not available 06/22/2022 Do you or have you ever used e-cigarettes or vape? Never used electronic cigarettes MIGRATION.030325 3807 Information not available 06/22/2022 What is your exercise level? Occasional MIGRATION.538399 8229 Information not available 06/22/2022 Mental Status Question Answer Note LastModified by Organizat ion Details LastModified Time Do you have difficulty concentrating, remembering or making decisions? No MIGRATION.[id number] 6 Information not available 06/22/2022 Family History Nothing Reported Notes:Mother 89 yea rs old Father 60 years old 2 Sisters 2 Living Mother Hx HTN, CVA,ASHD and CABG Father Hx Accidental Medical History Condition Response NERVE DISEASE N BLINDNESS N RHEUMATIC FEVER N KIDNEY STONES N BLADDER PROBLEMS N MRSA N OTHER # 1 N POLIO N LUNG DISEASE/DISORDER N COPD N RADIATION / CHEMOTHERAPY N Other # 2 N BLOOD DISEASES N EAR OR HEARING PROBLEMS N MUMPS N BOWEL PROBLEMS N DEPRESSION (INCLUDING POST ) N STROKE/TIA N ULCERS N BENIGN PROSTATIC HYPERPLASIA N MEASLES N MYOCARDIAL INFARCTION N OBESITY N GERD/NAUSEA N ANEURYSM N URINARY/BLADDER/KIDNEY PROBLEMS N CORONARY ARTERY DISEASE (CAD) N ADDICTION CONCERNS N ENDOMETRIOSIS N Impotence N USE OF BLOOD THINNERS N SKIN PROBLEMS N GASTROINTESTINAL DISORDER N PERIPHERAL VASCULAR DISEASE N MUSCLE,JOINT OR BONE PROBLEMS N GASTROINTESTINAL BLEEDING N BLOOD CLOTS N ASTHMA N CATARACTS N ERECTILE DYSFUNCTION N VARICOSITIES N GI PROBLEMS N Low Testosterone N INFERTILITY N AIDS/HIV N CHEMOTHERAPY / RADIATION N LIVER DISEASE N MALE HYPOGONADISM N HYPERTENSION N Deficiency N TOURETTE'S N ANXIETY DISORDER Y BLOOD TRANSFUSION N ANEMIA/BLOOD DISORDER N CHRONIC EAR INFECTIONS N BRONCHITIS N TUBERCULOSIS N GLAUCOMA N FOOT PROBLEM N DIVERTICULITIS N SLEEP APNEA N CHICKENPOX N INFECTIOUS DISEASE N HEART ARRHYTHMIA N PROSTATE N INSOMNIA N HIGH CHOLESTEROL / HYPERLIPIDEMIA Y HYPERTHYROIDISM N EYE PROBLEMS N EDEMA N CHRONIC PAIN SYNDROME N HYPOTHYROIDISM N CAROTID BLOCKAGE N CONSTIPATION N BACK / NECK PROBLEMS N HAVE YOU BEEN HOSPITALIZED OR SEEN IN [facility] IN THE PAST YEAR ? N ATHEROSCLEROSIS N BREAST PROBLEMS N DIALYSIS N ECZEMA N OSTEOPOROSIS N ARTHRITIS N NO SIGNIFICANT PAST MEDICAL HISTORY N APPENDICITIS N DIABETES, TYPE N BAD TEETH N ENT N HEARTBURN / REFLUX N AUTISM SPECTRUM DISORDER (ASD) N HEPATITIS / LIVER DISEASE N GOUT N SLEEP DISORDER N ALZHEIMER'S DISEASE N Brain Problems N HERPES N DEMENTIA N HEADACHES/MIGRAINES N SEIZURES/EPILEPSY N VASCULAR DISEASE N PACEMAKER N Blood Disorder N DIZZINESS N HEART DISEASE/HEART PROBLEMS Y KIDNEY DISEASE N MULTIPLE SCLEROSIS N CARDIAC ARRHYTHMIA N CANCER: SPECIFY N ATRIAL FIBRILLATION N Gall Stones N PULMONARY EMBOLISM N AUTOIMMUNE DISEASE N Gynecological History Statement/Question Response Date of Last Mammogram 09/25/2019 Date of Last Colonoscopy 11/08/2012 Most Recent Bone Density 09/25/2019 Obstetrics History GPAL:G 0 P 0 0 0 0 Immunizations Vaccine Type Date Status Note Provider Nam e and Address Organization Details Recorded Time SARS-COV-2 (COVID-19) vaccine, UNSPECIFIED 1 completed Not Available [facility] 06/22/2022 07:37:07 Influenza, high-dose, quadrivalent, PF 2 completed Not Available [facility] 06/22/2022 07:37:07 Past Encounters Encounter ID Performer Location Encounter Start Date Encounter Closed Date Diagnosis/Indication Diagnosis SNOMED-CT Code Diagnosis ICD10 Code Diagnosis Note [id number] Jo Lopez MD [facility] [place] [address] [place] [address] 10/09/2020 00:00:00 10/09/2020 11:29:10 [id number] Jo Lopez MD [facility] [place] [address] [place] [address] 07/27/2021 00:00:00 07/27/2021 15:35:33 [id number] Jo Lopez MD [facility] [place] [address] [place] [address] 01/25/2022 00:00:00 01/25/2022 15:11:41 [id number] Jo Lopez MD [facility] [place] [address] [place] [address] 02/08/2024 14:57:35 02/08/2024 16:12:08 Adult health examination 320826481 Z00.00 Screening for disorder 506117287 Z13.9 Essential hypertension 19165234 I10 Hypercholesterolemia 136 15834 E78.00 Dementia 08260424 F03.90 [id number] Jo Lopez MD [facility] [address] [facility] [place] [address] 11/07/2024 15:43:42 11/07/2024 16:18:30 Anxiety disorder 383479411 F41.9 Essential hypertension 41043638 I10 Hypercholesterolemia 136 31954 E78.00 Low back strain 05596053 1 S39.012A Vitamin D deficiency 347 67936 E55.9 Health Concerns Section Related Observation LastModified by Organization Detai ls LastModified Time None Recorded Concern Status LastModified by Organization Details LastModified Time None Recorded Advance Directives Directive Y: Payers Insurance Date Sequence Insurance Name Policy Number Policy Kovacs Covered Member ID Kovacs Member ID Guarantor Name 11/12/2024 1 U[employer] - [employer] - MEDICARE COMPLETE POS (MEDICARE REPLACEMENT HMO) [id number] Sarah Garcia [id number] Sarah Garcia Notes Date Note Type Note Provider Name and Address Organization Details Recorded Time 4 text/htm l Patient Name: Sarah GarciaDate Of Service: January ( 02.08.2024 ): 1945 Age: 78 Vital Signs:Blood Pressure: Sitting Rt. Arm 140/90Pulse: Sitting 99 /min and RegularRespiratory Rate: 16Height 60 in or 1.5 mWeight 129 lb or 58.5 kgBMI 25.2Temperature: 97 F or 36.1 CPulse Oximetry: 98 % at rest on no oxygen Chief Complaint: Addressed in HPI Problems or conditions discussed in the HPI were the only ones reviewed during the encounter.Only social and family history addressed in the HPI were reviewed during this encounter. A significant, separate E/M service was performed to evaluate the current and new problems. Attendant(s): sister brought her inConstitutional and Systemic Symptoms:none Medication Reconciliation: from medication list. Imofxrgfrhq08/30/2023: MRI of the brain moderate chronic small-vessel ischemic changes. Probable small meningioma along the lateral margin of the right frontal convexity. History of Present Illness Reviewed the findings of the preventative health visit. Addressed all areas with the patient, patient's family or caregivers. Preventative examinations and testing immunizations - vaccinations, colonic neoplasm screening, mammograms and DEXA Scan all reviewed and ordered where patient was amenable to the recommendations. Cognitive function Family members have noticed a quite a bit of decline in her cognitive functioning. At times acting somewhat erratically not quite to the level of any type of belligerence. Office staff states the patient does call many times for refills and may call back in several hours to call the medication in once again. At least on her mini-mental status examination actually does quite well. Our because of her decline according to family members in the my office staff was noticed this when they talked to her on the phone will need further evaluation.. Depression addressed and where necessary medications were adjusted or instituted. End of life and living will briefly discussed with patient and where these can be filled out and legally executed. Other blood and imaging studies were ordered if considered necessary. Other recommendations may be found in the encounter note. #1. Essential Hypertension: Stage: Stage I Interval Neurological Complaints no headaches, dizziness, weakness, visual changes, ataxia, aphasia and apraxia. No shortness of breath, orthopnea or cardiovascular symptoms. No other symptoms related to end organ damage. Pressure has been under fair control. Currently normal. No other end organ symptoms or findings. Therapy reviewed regarding management of hypertension and includes salt restriction and Hydrochlorothiazide and Metoprolol Succinate. #2. Type II Hypercholesterolaemia: Currently taking medication and tolerating well. No interval complaints of any muscle pain or arthralgia. No significant liver changes with medications. Last lipid panel: no testing done recently. Therapy reviewed regarding treatment of cholesterol management and include diet and Atorvastatin Calcium. #3. Hx of dementia. Currently stable. There has been no clinical change in cognitive functions. Performance of activities of daily living has remained unchanged. Currently taking no medication Mini-Cog Score: Mild Cognitive Impairment Active Medication ListTylenol Arthritis Extended Rel DailyHydrochlorothiazide 12.5 MG (TABLET - ORAL) Once DailyFish Oil Caps DailyGarlic DailyVitamin D D3 DailyAzo Gantrisin DailyVitamin B12 DailyAtorvastatin Calcium 20 MG (TABLET - ORAL) One DailyVitamin E DailyMetoprolol Succinate 50 MG TARTRATE (TABLET, EXTENDED RELEASE - ORAL) DailyOs-ben D Daily Adverse Drug Reactions ReviewedAccupril CoughAspirin Gum Bleeding Vaccination and Immunization( ) 2020- COVID 19 LETY & LETY(X) 2021- INFLUENZA(X) 2020- COVID BOOSTER PFIZER Surgical [id number] Rt. Breast [id number] [facility] [id number] O-[id number] Rt. Breast Iwyzri5787-88 Rt. Breast Biopsy Preventative Testing(X) 01/26/2022 DEXA Scan 01/27/2024( ) 08/02/2021 Albumin 4.1 G/DL N(X) 08/02/2021 Mammogram 08/03/2023(X) 05/11/2012 Colonoscopy 05/11/2022 Social HistorySOCIAL HISTORY:Does not smoke cigarettes. 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 This represents approximately a 1.6% change in weight. Weight change attributable to lifestyle changes. Vital Signs:Blood Pressure: Sitting Rt. Arm 120/84Pulse: Sitting 92 /min and RegularRespiratory Rate: 16Height 60 in or 1.5 mWeight 127 lb or 57.6 kgBMI 24.8Temperature: 97 F or 36.1 CPulse Oximetry: 94 % at rest on no oxygen Chief Complaint: Addressed in HPI Problems or conditions discussed in the HPI were the only ones reviewed during the encounter.Only social and family history addressed in the HPI were reviewed during this encounter. Attendants(s) + NoneConstitutional and Systemic Symptoms:none Medication Reconciliation: from medication list. History of Present Illness #1. Complaining of recent onset of acute lower back pain with some radiation into the buttocks. No radiation down into the legs or any further down. No saddle anesthesia. No incontinence of urine or stool. Aggravated by bending stooping in ambulation. Denies any history of any previous back problems. This sounds more like a muscular strain.: #2. Essential Hypertension: Stage: Stage I Interval Neurological Complaints no headaches, dizziness, weakness, visual changes, ataxia, aphasia and apraxia. No shortness of breath, orthopnea or cardiovascular symptoms. No other symptoms related to end organ damage. Pressure has been under excellent control. Currently normal. No other end organ symptoms or findings. Therapy reviewed regarding management of hypertension and includes salt restriction. #3. History of hypercholesterolaemia: History of the high cholesterol. Not taking any medications and being controlled by diet. No interval complaints of any chest pain, shortness of breath, orthopnea or other cardiovascular complaints. Last lipid panel: no testing done recently #4. Anxiety Disorder: History of anxiety disorder. There has been no panic attacks. No interval complaints of any vegetative or other signs of depression. Taking no medication. Discussed possibility of decreasing and weaning off medication. Feels that current regimen is working fine and wishes not to change the current treatment regimen. Medication not causing any sedation or cognitive dysfunction and there is no contraindication to continue current therapy. Active Medication ListTylenol Arthritis Extended Rel DailyFish Oil Caps DailyGarlic DailyVitamin D D3 DailyVitamin B12 DailyVitamin E DailyOs-ben D Daily Adverse Drug Reactions ReviewedAccupril CoughAspirin Gum Bleeding Vaccination and Immunization ( ) 2020- COVID 19 LETY & LETY(X) 2021- INFLUENZA(X) 2020- COVID BOOSTER PFIZERImmunizations and Vaccinations Discussed and Implemented if feasible In the Office. Else referred to pharmacies. Surgical History 1999- Rt. Breast [id number] [facility] [id number] Rt. Breast [id number] Rt. Breast Biopsy Preventative Testing (X) 01/26/2022 DEXA Scan 01/27/2024( ) 08/02/2021 Albumin 4.1 G/DL N(X) 08/02/2021 Mammogram 08/03/2023(X) 05/11/2012 Colonoscopy 3Preventative Testing Discussed and Scheduled if Acceptable to Patient Social HistorySOCIAL HISTORY:Does not smoke cigarettes. Drinking Hx: 3 Cups of tea per day.Exercise: InfrequentlySexual Hx: Sexually ActiveOccupation: [employer]ist Family HistoryFAMILY HISTORY:Mother 89 years oldFather 60 years old2 Sisters 2 LivingMother Hx: HTN, CVA,ASHD and CABGFather Hx: Accidental Jo Lopez MD [address] [facility], [facility] [address], [place], [address], [facility] 11/07/2024 16:15:23 OBGyn Episode No OBEpisode recorded.
[2024-11-14 09:10] LABS: Hematocrit 35.0 % (37.0-47.0); Hemoglobin 11.7 g/dL (12.0-15.0); Immature Granulocyte Percent A 0.2 % (0-0.5); Lymphocytes Absolute Auto 1.20 K/mm3 (0.9-3.2); Mean Corpuscular HGB Conc 33.4 g/dl (32-36); Mean Corpuscular Hemoglobin 27.1 pg (26-34); Mean Corpuscular Volume 81.2 fl (80-100); Nucleated Red Blood Cells Absolute Auto 0.000 K/mm3 (0.0-0.012); Nucleated Red Blood Cells Perc 0.0 % (0.0-0.2); Platelet Count Result 289 k/mm3 (150-375); Red Blood Count 4.31 M/mm3 (4.2-5.4); White Blood Count 8.1 K/mm3 (4.5-10.0)
[2024-11-14 09:33] LABS: Alanine Aminotransferase 22 U/L (6-35); Albumin Level 4.1 g/dL (3.5-5.1); Alkaline Phosphatase 79 U/L (38-126); Anion Gap 5 mmol/L (4-12); Aspartate Amino Transferase 36 U/L (14-36); Bilirubin,Total 0.6 mg/dL (0.2-1.3); Blood Urea Nitrogen 19 mg/dL (7-17); Calcium 10.1 mg/dL (8.4-10.2); Carbon Dioxide 27 mmol/L (22-30); Chloride 106 mmol/L (98-107); Cholesterol 223 mg/dL (0-200); Estimated Glomerular Filt Rate 54; Glucose 104 mg/dL (65-110); HDL Direct 73 mg/dL; Potassium 3.8 mmol/L (3.4-5.0); Sodium 138 mmol/L (137-145); Total Protein 7.3 g/dL (6.3-8.2); Triglycerides 86 mg/dL (<150)
[2024-11-14 10:10] LABS: Thyroid Stimulating Hormone 0.540 uIU/mL (0.465-4.680)
== END 2024-11-14 08:44 | disposition home or self-care (01) ==
PROVIDERS: PCP Internal Medicine; Visit Provider Internal Medicine
DX: I10 Essential (primary) hypertension (principal)
CPT/HCPCS: 36415; 80053; 80061; 84443; 85025

== ENCOUNTER 2024-12-24 03:21 | Observation (INO) | payer MEDICARE, SELFPAY ==
[2024-12-24] VITALS (22 sets, daily range): BP systolic 125–184; BP diastolic 58–103; PULSE 67–96; RESP 12–19; TEMP 36.4–37.2; O2SAT 96–100; BMI 23.7
--- NOTE | ~2024-12-24 | CT_ITS ---
EXAMINATION: CT abdomen pelvis w con DATE: 12/24/2024 05:16 INDICATION: Lower abdominal pain TECHNIQUE: Computed tomography (CT) of the abdomen and pelvis was performed with 100 mL Omnipaque-350 intravenous contrast. Automated exposure control and iterative reconstruction technique were employed. The dose-length product was 133.97 mGy-cm. COMPARISON: None FINDINGS: Mild bibasilar atelectasis. Cardiomegaly. No pericardial or pleural effusion. Liver, gallbladder, spleen, bilateral adrenal glands are normal. There are small bilateral renal cysts measuring up to 9 mm in the right kidney. The main pancreatic duct is dilated up to 6 mm at the body the pancreas without evident obstructing stone or mass, potentially sequela of chronic pancreatitis. The appendix is dilated to 10 mm with mild periappendiceal inflammatory stranding consistent with acute appendicitis. No bowel obstruction. Bladder is normal. The uterus is not identified and has likely been surgically resected. No abscess or free intraperitoneal gas or fluid. No pathologically enlarged abdominal or pelvic lymphadenopathy. Mild lumbar levocurvature with moderate spondylosis. IMPRESSION: 1. Acute appendicitis. 2. Pancreas appears normal aside from dilation of the main pancreatic duct up to 6 mm without evident obstructing stone or mass potentially related to sequela of chronic pancreatitis. Correlate with clinical history and lipase levels. Reviewed, dictated and finalized at location A. IMPRESSION: 1. Acute appendicitis. 2. Pancreas appears normal aside from dilation of the main pancreatic duct up t o 6 mm without evident obstructing stone or mass potentially related to sequela of chronic pancreatitis. Correlate with clinical history and lipase levels.
[2024-12-24] MEDS: ONDANSETRON INJ 4 MG/2 ML VIAL IV PUSH (03:48)
[2024-12-24] MEDS: SODIUM CHLORIDE 0.9% IV 1,000 ML 999 ML IV CONT (03:48)
[2024-12-24] MEDS: MORPHINE SULFATE (*CRX) 4 MG/ML INJ 2 MG IV PUSH (03:48)
[2024-12-24 03:49] LABS: Hematocrit 37.7 % (37.0-47.0); Hemoglobin 12.3 g/dL (12.0-15.0); Immature Granulocyte Percent A 0.3 % (0-0.5); Lymphocytes Absolute Auto 1.19 K/mm3 (0.9-3.2); Mean Corpuscular HGB Conc 32.6 g/dl (32-36); Mean Corpuscular Hemoglobin 27.1 pg (26-34); Mean Corpuscular Volume 83.0 fl (80-100); Nucleated Red Blood Cells Absolute Auto 0.000 K/mm3 (0.0-0.012); Nucleated Red Blood Cells Perc 0.0 % (0.0-0.2); Platelet Count Result 259 k/mm3 (150-375); Red Blood Count 4.54 M/mm3 (4.2-5.4); White Blood Count 13.5 K/mm3 (4.5-10.0)
[2024-12-24 03:51] LABS: Add Urine Microscopic? NO; Appearance Urine Clear (Clear); Glucose Urine UA Negative (Negative); Leukocyte Esterase Ur Negative LEU/UL (Negative); Nitrate Urine Negative (Negative); Specific Grav Ur 1.020 (1.001-1.035)
[2024-12-24 04:11] LABS: Alanine Aminotransferase 23 U/L (6-35); Albumin Level 4.4 g/dL (3.5-5.1); Alkaline Phosphatase 100 U/L (38-126); Anion Gap 7 mmol/L (4-12); Aspartate Amino Transferase 51 U/L (14-36); Bilirubin,Total 0.8 mg/dL (0.2-1.3); Blood Urea Nitrogen 27 mg/dL (7-17); Calcium 10.3 mg/dL (8.4-10.2); Carbon Dioxide 26 mmol/L (22-30); Chloride 105 mmol/L (98-107); Estimated CRCL calculation 31 ml/min; Estimated Glomerular Filt Rate 58; Glucose 106 mg/dL (65-110); Lipase 130 U/L (23-300); Potassium 4.2 mmol/L (3.4-5.0); Sodium 138 mmol/L (137-145); Total Protein 7.8 g/dL (6.3-8.2)
--- NOTE | 2024-12-24 04:29 | ED_ITS ---
HPI - General Adult General Chief complaint: Abdominal Pain Stated complaint: rlq pain Time Seen by Provider: 12/24/24 03:28 History of Present Illness HPI narrative: Patient is a 71-year-old female who presents emergency department chief complaint of lower abdominal pain. Patient reports she has been having pain for the last few weeks but reports he got worse this morning around 245 patient reports no nausea no vomiting or diarrhea. Related Data Allergies Allergy/AdvReac Type Severity Reaction Status Date / Time No Known Allergies Allergy Unverified 04/07/16 10:38 Review of Systems 2 Review of Systems: A 10 system review of systems was completed on the patient and is negative except for what is stated in the HPI. Nursing and ancillary documentation was reviewed. Exam 2 Narrative: GENERAL: Well-appearing, well-nourished, and in no acute distress. HEAD: Normocephalic, atraumatic. EYES: PERRLA and EOMI. ENT: Nares clear, no rhinorrhea or epistaxis. Mucous membranes moist. NECK: Supple. CHEST: Clear to auscultation. No respiratory distress. HEART: Regular rate and rhythm. No murmur heard. Normal peripheral pulses. ABDOMEN: Soft, tenderness to palpation the right lower quadrant, nondistended, normal active bowel sounds. EXTREMITIES: Normal range of motion. No edema. SKIN: Warm, dry, no rash. NEURO: No focal deficits. Alert and oriented x3. PSYCH: Normal mood and affect. Course Vital Signs Vital signs: Vital Signs Temperature 36.6 C 12/24/24 03:28 Pulse Rate 88 12/24/24 03:28 Respiratory Rate 12/24/24 03:28 Blood Pressure 160/103 H 12/24/24 03:28 Pulse Oximetry 100 12/24/24 03:28 Oxygen Delivery Room Air 12/24/24 03:28 Temperature 36.6 C 12/24/24 03:28 Pulse Rate 88 12/24/24 03:28 Respiratory Rate 19 12/24/24 03:28 Blood Pressure 160/103 H 12/24/24 03:28 Pulse Oximetry 100 12/24/24 03:28 Oxygen Delivery Room Air 12/24/24 03:28 Medical Decision Making Vital Signs Vital Signs: Vital Signs Temperature 36.6 C 12/24/24 03:28 Pulse Rate 88 12/24/24 03:28 Respiratory Rate 12/24/24 03:28 Blood Pressure 160/103 H 12/24/24 03:28 Pulse Oximetry 100 12/24/24 03:28 Oxygen Delivery Room Air 12/24/24 03:28 Temperature 36.6 C 12/24/24 03:28 Pulse Rate 88 12/24/24 03:28 Respiratory Rate 19 12/24/24 03:28 Blood Pressure 160/103 H 12/24/24 03:28 Pulse Oximetry 100 12/24/24 03:28 Oxygen Delivery Room Air 12/24/24 03:28 Lab Data 12/24/24 03:42 12/24/24 03:42 Labs: Lab Results 12/24/24 Range/Units 03:42 WBC 13.5 H (4.5-10.0) K/mm3 RBC 4.54 (4.2-5.4) M/mm3 Hgb 12.3 (12.0-15.0) g/dL Hct 37.7 (37.0-47.0) % MCV 83.0 (80-100) fl MCH 27.1 (26-34) pg MCHC 32.6 (32-36) g/dl RDW 15.7 H (11.5-14.5) % Plt Count 259 (150-375) k/mm3 MPV 9.9 (7.4-10.4) fl Immature Gran % (Auto) 0.3 (0-0.5) % Neut % (Auto) 86.1 H (45.5-73.1) % Lymph % (Auto) 8.8 L (18.3-44.2) % [place] % (Auto) 3.9 (2.6-8.5) % Eos % (Auto) 0.7 (0-4.4) % Baso % (Auto) 0.2 (0.2-1.2) % Lymph # (Auto) 1.19 (0.9-3.2) K/mm3 [place] # (Auto) 0.5 (0.1-0.6) K/mm3 Eos # (Auto) 0.1 (0-0.3) K/mm3 Baso # (Auto) 0.0 (0.0-0.1) K/mm3 Abs Immat Gran (auto) 0.04 H (0.00-0.031) K/mm3 Absolute Neuts (auto) 11.6 H (1.3-6.7) K/mm3 Absolute Nucleated RBC 0.000 (0.0-0.012) K/mm3 Nucleated RBC % 0.0 (0.0-0.2) % Sodium 138 (137-145) mmol/L Potassium 4.2 (3.4-5.0) mmol/L Chloride 105 (98-107) mmol/L Carbon Dioxide 26 (22-30) mmol/L Anion Gap 7 (4-12) mmol/L BUN 27 H (7-17) mg/dL Creatinine 0.93 (0.7-1.0) mg/dL Estim Creat Clear Calc 31 ml/min Estimated GFR 58 L (59 - ) Glucose 106 (65-110) mg/dL Lactic Acid 0.7 (0.7-2.0) mmol/L Calcium 10.3 H (8.4-10.2) mg/dL Total Bilirubin 0.8 (0.2-1.3) mg/dL AST 51 H (14-36) U/L ALT 23 (6-35) U/L Alkaline Phosphatase 100 (38-126) U/L Total Protein 7.8 (6.3-8.2) g/dL Albumin 4.4 (3.5-5.1) g/dL Lipase 130 (23-300) U/L Urine Color Yellow (Yellow) Urine Appearance Clear (Clear) Urine pH 6.0 (5.0-9.0) Ur Specific [place] 1.020 (1.001-1.035) Urine Protein Negative (Negative) mg/dL Urine Glucose (UA) Negative (Negative) mg/dL Urine Ketones Negative (Negative) mg/dL Ur Blood (Man) Negative (Negative) Urine Nitrate Negative (Negative) Urine Bilirubin Negative (Negative) Urine Urobilinogen 0.2 (<2.0) mg/dL Leukocyte Esterase Rfl Negative (Negative) ROCHELLE/UL Discharge Plan Discharge Clinical Impression: Acute appendicitis Patient Disposition: Still a Patient Condition: Stable Instructions: Antibiotic Form Patient Language: Burundian Follow-up/Referrals: John,Matthew Harper MD [Primary Care Provider]
[2024-12-24] MEDS: MORPHINE SULFATE (*CRX) 2 MG/ML INJ IV PUSH (05:40)
[2024-12-24] MEDS: PIPERACILLIN/TAZOBACTAM SOD 3.375 GM in SODIUM CHLORIDE 0.9% IV 50 ML 100 ML IVPB (05:41)
[2024-12-24] MEDS: SODIUM CHLORIDE 0.9% IV 1,000 ML 100 ML IV CONT (06:18)
--- NOTE | 2024-12-24 06:55 | ADMGEN ---
This patient, Elizabeth Amos, was admitted to Medical Room 251-01. Patient/family oriented to hospital policies and general routines including ID bracelet, bed and alarms, visiting hours, pain management, procedures, bathroom and other care routines, personal items, smoking policy, room service/diet, and visiting hours. Information on how to activate the Rapid Response Team has been discussed. Patient/Family are encouraged to report perceived risks to care and to ask questions if they do not understand what they are told or what they should do.
--- NOTE | 2024-12-24 10:06 | PM.IMHP ---
H&P: HPI History of Present Illness Date/Time: 12/24/24 10:06 Chief Complaint: right lower quadrant pain Narrative: Patient is an otherwise healthy 79 year old female who presented to the ED early this morning around 0430 with complaints of right lower quadrant that started 0200. The pain was exacerbated with movement and sitting up in bed. She states that she went to wake up her son who lives with her and he took her to the emergency department. Patient does mention that she has been having intermittent right lower quadrant pain x4 months, but that she feels that this pain was lower towards her groin. She denies any nausea or vomiting. Believes she had a bowel movement yesterday. Upon admission to the ED, labs were significant for white blood cell count of 13.5. CT imaging demonstrated evidence of acute appendicitis. Also noted on the CT was a dilation of the main pancreatic duct to 6 mm without evidence obstructing stone or mass. Lipase level normal. Currently NPO. Given Zosyn. Abdominal surgical history consists of . [facility] Social History Social History Smoking status: Never smoker Alcohol intake: never Substance use: never Substance use type: does not use Lack of Transportation: No Lack of Food: Never True Current Housing: I Have Housing Concerned About Future Housing: No Difficulty Paying Gas/Electric Bills: No Difficulty Paying for Meds: No Currently Unemployed: No Education: Associate Degree Difficulty w/ Childcare or Family Care: YES Spiritual care concerns: No Meds Home Medications and Allergies Home Medications ?Medication ?Instructions ?Recorded ?Confirmed ?Type No Home Medications 12/24/24 12/24/24 History Allergies Allergy/AdvReac Type Severity Reaction Status Date / Time No Known Allergies Allergy Unverified 12/24/24 07:30 Vital Signs Vital Signs - 24 hr 12/24/24 03:28 12/24/24 04:40 12/24/24 04:45 Temperature 98 F Pulse Rate 88 84 73 Respiratory Rate 19 14 12 Blood Pressure 160/103 H Pulse Oximetry 100 98 99 Oxygen Delivery Room Air 12/24/24 05:16 12/24/24 05:31 12/24/24 05:32 Temperature Pulse Rate 88 75 71 Respiratory Rate 18 15 17 Blood Pressure 175/80 H Pulse Oximetry 100 100 100 Oxygen Delivery 12/24/24 05:45 12/24/24 06:00 12/24/24 07:50 Temperature Pulse Rate 88 71 Respiratory Rate 13 12 Blood Pressure 180/84 H Pulse Oximetry 97 98 Oxygen Delivery 12/24/24 08:23 Temperature Pulse Rate Respiratory Rate Blood Pressure 168/88 H Pulse Oximetry Oxygen Delivery Exam Const: General: comfortable and no acute distress Eyes: General: appearance normal, both eyes and all related structures Neck: Neck: supple Resp: Effort & Inspection: normal respiratory effort Cardio: Rate: regular rate GI: Inspection: non-distended GI Palp: Yes Soft to palpation, Yes Tenderness to palpation present (GI) (right lower quadrant) and Yes Guarding due to palpation present (GI) Skin: General skin exam: normal color and no rashes or lesions noted Extrem: General: normal to inspection Psych: Mental Status: mental status grossly normal H&P: Results Labs Labs: Short CBC 12/24/24 Range/Units 03:42 WBC 13.5 H (4.5-10.0) K/mm3 Hgb 12.3 (12.0-15.0) g/dL Hct 37.7 (37.0-47.0) % Plt Count 259 (150-375) k/mm3 BMP 12/24/24 03:42 Sodium 138 Potassium 4.2 Chloride 105 Carbon Dioxide 26 BUN 27 H Creatinine 0.93 Glucose 106 Calcium 10.3 H Liver Function 12/24/24 Range/Units 03:42 Total Bilirubin 0.8 (0.2-1.3) mg/dL AST 51 H (14-36) U/L ALT 23 (6-35) U/L Alkaline Phosphatase 100 (38-126) U/L Albumin 4.4 (3.5-5.1) g/dL Urine 12/24/24 Range/Units 03:42 Urine Color Yellow (Yellow) Urine Appearance Clear (Clear) Urine pH 6.0 (5.0-9.0) Ur Specific [place] 1.020 (1.001-1.035) Urine Protein Negative (Negative) mg/dL Urine Glucose (UA) Negative (Negative) mg/dL Assessment and Plan Assessment and plan (1) Acute appendicitis: Code(s): K35.80 - Unspecified acute appendicitis Status: Acute Assessment and Plan: Patient presented to the ED early this morning with right lower quadrant pain that had started a few hours prior. The pain is exacerbated with movement and sitting up. No associated nausea or vomiting. CT showed evidence of acute appendicitis. WBC 13.5. Patient is scheduled for laparoscopic appendectomy today. Risks, benefits, and alternatives were discussed with the patient. All questions were answered. Patient agreeable to surgery. Patient should remain NPO. Continue IV Zosyn. Plan Discussed patient's case and plan of care with Dr. Mcwilliams.
--- NOTE | 2024-12-24 10:11 | P.SS_ITS ---
Same Day Admit/Disch: HPI History of Present Illness Chief complaint: Acute appendicitis Narrative: Elizabeth Amos is a 79 year old female Who came to the emergency room early this morning with right lower quadrant abdominal pain. She has been having pain for several days but it got acutely worse early this morning. In the emergency room, she was noted to have right lower quadrant tenderness with guarding. Her white blood cell count was elevated to over 13,000. CT scan showed acute appendicitis. I reviewed the CT scan myself and agree that it appears she has acute appendicitis. She is taken to surgery now for laparoscopic appendectomy. [facility] Social History Social History Smoking status: Never smoker Alcohol intake: never Substance use: never Substance use type: does not use Lack of Transportation: No Lack of Food: Never True Current Housing: I Have Housing Concerned About Future Housing: No Difficulty Paying Gas/Electric Bills: No Difficulty Paying for Meds: No Currently Unemployed: No Education: Associate Degree Difficulty w/ Childcare or Family Care: YES Spiritual care concerns: No Same Day Admit/Disch: Med Pre-admit Medications Home Medications ?Medication ?Instructions ?Recorded ?Confirmed ?Type oxycodone-acetaminophen 5 mg-325 0.5 - 1 tablet PO Q4H PRN pain #7 12/24/24 Rx mg tablet (Percocet) tabs Review of Systems Review of Systems All systems reviewed & are unremarkable except as noted in HPI and below ( HPI) Exam Const: General: comfortable, no acute distress, alert and awake HENMT: Head: normocephalic and atraumatic Mouth: Yes Normal oral and palatal mucosa present Eyes: Conjunctivae: conjunctivae normal Pupils: Equal, round and reactive pupils present EOM: EOMs intact bilaterally Neck: Neck: normal visual inspection, no lymphadenopathy and nontender Resp: Effort & Inspection: normal respiratory effort Auscultation: clear to auscultation bilaterally Cardio: Rate: regular rate Rhythm: regular rhythm Heart sounds: no gallops, no murmurs and no rubs GI: Inspection: normal to inspection, non-distended and scaphoid GI Palp: Yes Soft to palpation, Yes Tenderness to palpation present (GI) ( right lower quadrant with guarding), Yes Guarding due to palpation present (GI), No Hepatomegaly present and No Splenomegaly present Auscultation: Hypoactive bowel sounds present Skin: Lesions: no lesions Rashes: no rashes Neuro: General: no focal motor deficits and CN's II-XI intact bilaterally Cranial nerves: Yes Equal, round and reactive pupils present, Yes Bilaterally intact EOM present, Yes facial symmetry and Yes Midline tongue present Speech: normal speech Motor exam (neuro): 5/5 motor strength present throu ghout and Motor abnormalities not present Extrem: General: no clubbing, cyanosis or edema and edema Psych: Affect: normal affect Thought process: Normal thought process present Insight: Good insight present (Psych) DS: Data Data Completed and Pending Labs on day of discharge: Labs from last 24 hours 12/24/24 03:42 WBC 13.5 H RBC 4.54 Hgb 12.3 Hct 37.7 MCV 83.0 MCH 27.1 MCHC 32.6 RDW 15.7 H Plt Count 259 MPV 9.9 Immature Gran % (Auto) 0.3 Neut % (Auto) 86.1 H Lymph % (Auto) 8.8 L [place] % (Auto) 3.9 Eos % (Auto) 0.7 Baso % (Auto) 0.2 Lymph # (Auto) 1.19 [place] # (Auto) 0.5 Eos # (Auto) 0.1 Baso # (Auto) 0.0 Abs Immat Gran (auto) 0.04 H Absolute Neuts (auto) 11.6 H Absolute Nucleated RBC 0.000 Nucleated RBC % 0.0 Sodium 138 Potassium 4.2 Chloride 105 Carbon Dioxide 26 Anion Gap 7 BUN 27 H Creatinine 0.93 Estim Creat Clear Calc 31 Estimated GFR 58 L Glucose 106 Lactic Acid 0.7 Calcium 10.3 H Total Bilirubin 0.8 AST 51 H ALT 23 Alkaline Phosphatase 100 Total Protein 7.8 Albumin 4.4 Lipase 130 Urine Color Yellow Urine Appearance Clear Urine pH 6.0 Ur Specific [place] 1.020 Urine Protein Negative Urine Glucose (UA) Negative Urine Ketones Negative Ur Blood (Man) Negative Urine Nitrate Negative Urine Bilirubin Negative Urine Urobilinogen 0.2 Leukocyte Esterase Rfl Negative Imaging Attestation: I personally reviewed and interpreted this imaging study as follows: ( CT scan abdomen and pelvis) My impression: acute appendicitis Radiologist's impression: same. Also noted some pancreatic duct dilatation possibly from old chronic pancreatitis. DS: Summary Time Spent with Patient Time attestation: Total time spent providing and/or coordinating discharge services: DS: Admitting Diagnosis Discharge Date 12/24/2024 Admitting Diagnosis * acute appendicitis- after discussion, plan to proceed with laparoscopic appendectomy under anesthesia. I explained the procedure to the patient. I explained the usual length of the surgery as well as the length of recovery. I described the option of nonsurgical, medical therapy. this suffers from the concerns over the appendix harboring a malignancy in which it would be indicated then to remove the appendix at a later date. She wishes to proceed with the surgery at this time. All questions were answered. She agrees to go ahead. Discharge Plan Discharge Attending physician on discharge: Zachary Mcwilliams Discharging Clinician: Zachary Mcwilliams Anticipated Discharge Date/Time: 12/24/24 11:42 Patient Disposition: Home Activity: may shower, no straining and as tolerated Diet: regular and bland Wound Care Instructions: incision open to air Discharge Instructions: 1. May shower the day after surgery over incisions. 2. Call office for: -Wound increasingly painful or bleeding -Vomiting -Fever of greater than 101 degrees 3. Expect some blood on dressing and old blood on skin. 4. If no bowel movement for three days, take 1 oz. (30 ml) Milk of Magnesia, if no results, take Fleets enema. 5. No heavy lifting > 15-20 pounds for 2 weeks. 6. No driving for 3 days or while taking narcotic pain medications. 7. Up walking 10-30 minutes three times per day. 8. Resume previous home medications. 9. Follow-up 10-14 days in office for wound check or as previously scheduled. 10. Oral pain medications prescription to be sent home with patient. 11. NUTRITION: Start out by drinking fluids and increase your diet as tolerated. If you experience nausea, try dry toast, crackers, and 7-UP. If nausea or vomiting persists, contact your surgeon?s office. Patient Instructions: Antibiotic Form Patient Language: Italian Stand Alone Forms: General Discharge Information Follow-up/Referrals: Zachary Mcwilliams MD [Physician, General Surgery] - 2 Weeks Discharge Medications: New oxycodone-acetaminophen [Percocet] 5-325 mg tablet 0.5 - 1 tablet PO Q4H PRN (Reason: pain) Qty: 7 0RF ibuprofen 600 mg tablet 600 mg PO Q6H PRN (Reason: pain) Qty: 14 0RF Date of admission: 12/24/24 05:44 Primary Care Provider: John,Matthew Harper Admitting Provider: Zachary Mcwilliams Attending physician on admission: Zachary Mcwilliams Condition: Improved
--- NOTE | 2024-12-24 10:16 | WPDHPUPDATE1 ---
History and Physical Update Update Date/Time: 12/24/24 10:16 History and Physical has been reviewed, including an updated exam of the patient. There are NO changes in the patient's condition. Risks, benefits, and alternatives have been discussed and questions answered. Patient agrees to proceed with procedure.
[2024-12-24] MEDS: LACTATED RINGERS 1,000 ML 30 ML IV CONT (10:40)
--- NOTE | 2024-12-24 10:42 | P.PNAN_ITS ---
Anes - Initial Pre Proc Eval Procedure: Operation Date: 12/24/24 15:30 Proposed Procedures p Laparoscopic Appendectomy - Zachary Mcwilliams MD Date/Time: 12/24/24 10:42 Surgeon: Zachary Mcwilliams MD Pre Op Diagnosis: Acute appendicitis Patient Data Age: 79 Gender: F Height: 1.55 m Weight: 56.9 kg Last Vital Signs Temp 37.2 C 12/24/24 10:27 Pulse 96 12/24/24 10:27 Resp 18 12/24/24 10:27 BP 168/82 H 12/24/24 10:27 Pulse Ox 100 12/24/24 10:27 O2 Del Method Room Air 12/24/24 10:27 Allergies Allergy/AdvReac Type Severity Reaction Status Date / Time No Known Allergies Allergy Unverified 12/24/24 10:36 Home Medications ?Medication ?Instructions ?Recorded ?Confirmed ?Type No Home Medications 12/24/24 12/24/24 H istory Laboratory Tests 12/24/24 03:42 WBC 13.5 H K/mm3 (4.5-10.0) RBC 4.54 M/mm3 (4.2-5.4) Hgb 12.3 g/dL (12.0-15.0) Hct 37.7 % (37.0-47.0) MCV 83.0 fl (80-100) MCH 27.1 pg (26-34) MCHC 32.6 g/dl (32-36) RDW 15.7 H % (11.5-14.5) Plt Count 259 k/mm3 (150-375) MPV 9.9 fl (7.4-10.4) Immature Gran % (Auto) 0.3 % (0-0.5) Neut % (Auto) 86.1 H % (45.5-73.1) Lymph % (Auto) 8.8 L % (18.3-44.2) [place] % (Auto) 3.9 % (2.6-8.5) Eos % (Auto) 0.7 % (0-4.4) Baso % (Auto) 0.2 % (0.2-1.2) Lymph # (Auto) 1.19 K/mm3 (0.9-3.2) [place] # (Auto) 0.5 K/mm3 (0.1-0.6) Eos # (Auto) 0.1 K/mm3 (0-0.3) Baso # (Auto) 0.0 K/mm3 (0.0-0.1) Abs Immat Gran (auto) 0.04 H K/mm3 (0.00-0.031) Absolute Neuts (auto) 11.6 H K/mm3 (1.3-6.7) Absolute Nucleated RBC 0.000 K/mm3 (0.0-0.012) Nucleated RBC % 0.0 % (0.0-0.2) Sodium 138 mmol/L (137-145) Potassium 4.2 mmol/L (3.4-5.0) Chloride 105 mmol/L (98-107) Carbon Dioxide 26 mmol/L (22-30) Anion Gap 7 mmol/L (4-12) BUN 27 H mg/dL (7-17) Creatinine 0.93 mg/dL (0.7-1.0) Estim Creat Clear Calc 31 ml/min Estimated GFR 58 L (59 - ) Glucose 106 mg/dL (65-110) Lactic Acid 0.7 mmol/L (0.7-2.0) Calcium 10.3 H mg/dL (8.4-10.2) Total Bilirubin 0.8 mg/dL (0.2-1.3) AST 51 H U/L (14-36) ALT 23 U/L (6-35) Alkaline Phosphatase 100 U/L (38-126) Total Protein 7.8 g/dL (6.3-8.2) Albumin 4.4 g/dL (3.5-5.1) Lipase 130 U/L (23-300) Urine Color Yellow (Yellow) Urine Appearance Clear (Clear) Urine pH 6.0 (5.0-9.0) Ur Specific [place] 1.020 (1.001-1.035) Urine Protein Negative mg/dL (Negative) Urine Glucose (UA) Negative mg/dL (Negative) Urine Ketones Negative mg/dL (Negative) Ur Blood (Man) Negative (Negative) Urine Nitrate Negative (Negative) Urine Bilirubin Negative (Negative) Urine Urobilinogen 0.2 mg/dL (<2.0) Leukocyte Esterase Rfl Negative ROCHELLE/UL (Negative) Patient hx anesthesia problems: none Family hx anesthesia problems: none Results Review: All pre-operative results and documents have been reviewed as part of the pre- operative evaluation. [facility] Social History Social History Smoking status: Never smoker Alcohol intake: never Substance use: never Substance use type: does not use Lack of Transportation: No Lack of Food: Never True Current Housing: I Have Housing Concerned About Future Housing: No Difficulty Paying Gas/Electric Bills: No Difficulty Paying for Meds: No Currently Unemployed: No Education: Associate Degree Difficulty w/ Childcare or Family Care: YES Spiritual care concerns: No Anes - Eval Final PreProcedure Day of Procedure 12/24/24 10:42 Patient weight: normal Heart: regular rate and rhythm Lungs: clear to auscultation Airway: Mallampati scale class III Neurological: alert and oriented Last oral intake: >/= 8 hours ASA classification: II Emergent: no Anesthetic plan: proceed Anesthesia type and monitoring: general ETT and standard monitoring Results Review: All pre-operative results and documents have been reviewed as part of the pre-operative evaluation. Informed Consent: The patient's anesthetic plan and its attendant risks and benefits were discussed with the patient/family/POA. Questions were solicited and answers provided to the satisfaction of the patient/family/POA.
[2024-12-24] MEDS: ceFAZolin 2 GM in SODIUM CHLORIDE 0.9% IV 50 ML 100 ML IVPB (10:43)
[2024-12-24] MEDS: BUPIVACAINE/EPINEPHRINE 0.5% 30 ML VIAL INFILTRATE (11:16)
--- NOTE | 2024-12-24 11:24 | S_PTH ---
PATIENT: Elizabeth Amos LOC: [id number] U#:[id number] AGE/SX: 79/F ROOM: 251 RE12/24/[address]: Zachary Mcwilliams MD : [id number] BED: 01 DIS: 12/24/2024 SPEC #: [id number] RECD: 12/24/24 12:45 STATUS: SOUShalini REQ #: [id number] TRAVIS: 12/24/24 11:[address]: Zachary Mcwilliams DEPT: [facility] Surgical RECD BY: Shawna Nair ENTERED: 12/24/24 12:45 SP TYPE: Surgical OTHR DR: Matthew LopezMD Tissues: A - Appendix Procedures: Hematoxylin and Eosin Stain Gross and Microscopic Level 3
--- NOTE | 2024-12-24 11:34 | P.OP_ITS ---
Procedure Note - Detailed Date of Procedure 12/24/24 Pre-op Diagnosis Acute appendicitis Post-op Diagnosis Same Procedure Performed Laparoscopic appendectomy Surgeon Zachary Mcwilliams MD [employer] SILVA Anesthesia General and Local Indications patient had been having some lower abdominal pain for a few days. It got considerably worse and moved to the right lower quadrant and suprapubic area early this morning. Evaluation in the emergency room showed leukocytosis, right lower quadrant tenderness, and CT showed acute appendicitis. Findings Acute uncomplicated appendicitis Description of Procedure patient was taken to surgery and induced into general anesthesia. The abdomen is prepped and draped. Trocars were placed in the usual fashion with optical trocars and a 5 mm camera. There was several small bowel adhesions in the pelvis. There was 1 small bowel adhesion that ran under the left rectus muscle from the pelvis cephalad. Care was taken to avoid this as we placed our trocars. The patient was placed in Trendelenburg with the right-side elevated. Some adhesions that were obscuring our ability to mobilize the appendix were taken down using cautery. I was then able to grasp the appendix and mobilize it from other inflammatory adhesions. I elevated the appendix anteriorly and then used the cautery to slowly divide the mesoappendix and the appendiceal vessels. Eventually, I skeletonized the base of the appendix. A Vicryl endoloop was then used to ligate the base of the appendix. The appendix was then amputated just above the ligature. The mucosa of the appendiceal stump was thoroughly cauterized. The appendix was placed immediately in an Endo-Catch bag. It was retrieved through the 10 11 left lower quadrant trocar site. We then reviewed the areas of dissection and the right lower quadrant. There was no sign of bleeding or injury. All looked good. I then used a Hitesh cone and suture passed device. An 0 Vicryl suture was used to close the fascia at the 11 mm left lower quadrant trocar site. We then evacuated CO2 and removed the trocar sleeves. Skin wounds were closed with subcuticular 4-0 Monocryl skin suture. The wounds were dressed with Exofin surgical adhesive. The patient was awakened and taken to recovery in good condition. Sponge needle counts were correct x2. Estimated Blood Loss -5 Drains No Packing No Pathology Yes ( Appendix) Complications None Condition Stable Disposition PACU [facility] Billing Surgery - Charge Forward: Surgery Billing ( laparoscopic appendectomy)
[2024-12-24] MEDS: fentaNYL CITRATE INJ (*CRX) 100 MCG/2 ML VIAL 25 MCG IV PUSH ×4 (12:01→12:12)
[2024-12-24] MEDS: oxyCODONE HCL (*CRX) 5 MG TAB IR PO ×2 (12:53→17:49)
[2024-12-24] MEDS: ACETAMINOPHEN 500 MG TABLET PO (15:57)
== END 2024-12-24 18:28 | disposition home or self-care (01) ==
LOC: ANHED 05:30 → ANH2MED 05:59
PROVIDERS: Admitting Provider Surgery; Emergency Provider Emergency Medicine; PCP Internal Medicine; Visit Provider Surgery
PROC: 0DTJ4ZZ Resection of Appendix, Percutaneous Endoscopic Approach (ICD-10-PCS; CPT 44970; principal; 2024-12-24 15:30)
DX: K35.80 Unspecified acute appendicitis (principal)
CPT/HCPCS: 44970; 36415; 74177; 80053; 81003; 83605; 83690; 85025; 88304; 99285; J0690; A9270; G0378; J0330; J0360; J1100; J2270; J2405; J2543; J2704; J3010; J7030; J7120; Q9967